=== PATIENT | male | born 1995 | race Caucasian/White ===

== ENCOUNTER 2019-10-25 11:25 | Emergency (ER) | payer SELFPAY ==
--- NOTE | 2019-10-25 13:08 | EDPHYS ---
Physician Documentation [facility] Name: Doug Bonilla II Age: 24 yrs Sex: Male : 1995 Arrival Date: 10/25/2019 Time: 11:28 Bed 23 Private MD: ED Physician Riley Looney HPI: 10/24 13:09 This 24 yrs old Male presents to ER via Ambulatory with complaints of Staple kb Removal. 13:09 The patient has ivanna on the scalp. Previous treatment: The patient was initially kb treated 5 day(s) ago, the care was rendered at another emergency department, [place]. Sutures/ivanna progress: The patient has no c/o's. The wound is well-healing with no redness, swelling, discharge, or dehiscence reported. The patient has not experienced similar symptoms in the past. The patient has been recently seen by a physician:. "I had a tree limb fall and hit me in the head. I had ivanna put in at an ER in [place] and they said to have them removed in 5-7 days. It's been 5 days and I want them out now." . Historical: - Allergies: 11:36 No Known Allergies; sv - PMHx: 11:36 Myocardial infarction; Brugada syndrome; sv - PSHx: 11:36 None; sv - Immunization history:: Adult Immunizations. - Social history:: Smoking status: . ROS: 13:09 Constitutional: Negative for fever, chills, and weight loss, Cardiovascular: Negative kb for chest pain, palpitations, and edema, Respiratory: Negative for shortness of breath, cough, wheezing, and pleuritic chest pain, Abdomen/GI: Negative for abdominal pain, nausea, vomiting, diarrhea, and constipation, Back: Negative for injury and pain, MS/Extremity: Negative for injury and deformity, Neuro: Negative for headache, weakness, numbness, tingling, and seizure. 13:09 Skin: Positive for laceration(s), of the scalp. Exam: 13:09 Constitutional: This is a well developed, well nourished patient who is awake, alert, kb and in no acute distress. Head/Face: Normocephalic, atraumatic. Neuro: Awake and alert, GCS 15, oriented to person, place, time, and situation. Cranial nerves II-XII grossly intact. Motor strength 5/5 in all extremities. Sensory grossly intact. Cerebellar exam normal. Normal gait. 13:09 Skin: Wound recheck: Staple laceration closure: the wound is healing well, the edges are well approximated, no evidence of dehiscence, no drainage, no erythema, no swelling. Vital Signs: 11:37 BP 150 / 90; Pulse 76; Resp 18; Pulse Ox 100% ; sv Procedures: 13:09 Suture/Staple removal: Removed 8 ivanna, from scalp, site appears well healed, Patient kb tolerated well. MDM: 12:53 Patient medically screened. kb 13:11 Data reviewed: vital signs, nurses notes. Data interpreted: Pulse oximetry: on room air kb is 100 %. Interpretation: normal. Counseling: I had a detailed discussion with the patient and/or guardian regarding: the historical points, exam findings, and any diagnostic results supporting the discharge/admit diagnosis, the need for outpatient follow up, a family practitioner, to return to the emergency department if symptoms worsen or persist or if there are any questions or concerns that arise at home. Administered Medications: No medications were administered Disposition: 10/25 11:09 Co-signature as Attending Physician, Riley Looney MD I agree with the assessment and [facility] plan of care. Disposition: 10/25/19 13:07 Discharged to Home. Impression: Encounter for removal of sutures - ivanna. - Condition is Stable. - Discharge Instructions: Suture Removal, Care After. - Medication Reconciliation Form, Thank You Letter, Antibiotic Education, Prescription Opioid Use form. - Follow up: Emergency Department; When: As needed; Reason: Worsening of condition. Follow up: Private Physician; When: 2 - 3 days; Reason: Recheck today's complaints, Continuance of care, Re-evaluation by your physician. Signatures: Shy Lao, LODGE OFFICER-C AILYN-Alejandrina Yoder RN RN sv Anderson, Corey, MD MD cha Smirch, Shelby, RN RN ss Corrections: (The following items were deleted from the chart) 10/24 13:14 13:07 10/25/2019 13:07 Discharged to Home. Impression: Encounter for removal of sutures ss - ivanna. Condition is Stable. Forms are Medication Reconciliation Form, Thank You Letter, Antibiotic Education, Prescription Opioid Use. Follow up: Emergency Department; When: As needed; Reason: Worsening of condition. Follow up: Private Physician; When: 2 - 3 days; Reason: Recheck today's complaints, Continuance of care, Re-evaluation by your physician. kb
--- NOTE | 2019-10-25 13:08 | ER ---
Nurse's Notes [facility] Name: Doug Bonilla II Age: 24 yrs Sex: Male : 1995 Arrival Date: 10/25/2019 Time: 11:28 Bed 23 Private MD: Diagnosis: Encounter for removal of sutures-ivanna Presentation: 10/24 11:34 Chief complaint: Patient states: ivanna placed in [place] on 10/20/19. Needs them sv removed. Coronavirus screen: Client denies travel out of the [place] in the last 14 days. At this time, the client does not indicate any symptoms associated with coronavirus-19. Ebola Screen: No symptoms or risks identified at this time. Risk Assessment: Do you want to hurt yourself or someone else? Patient reports no desire to harm self or others. Onset of symptoms was October 20, 2019. 11:34 Method Of Arrival: Ambulatory sv 11:34 Acuity: UMBERTO 4 sv 11:37 Initial Sepsis Screen: Does the patient meet any 2 criteria? No. Patient's initial sv sepsis screen is negative. Does the patient have a suspected source of infection? No. Patient's initial sepsis screen is negative. Triage Assessment: 11:34 General: Appears in no apparent distress. comfortable, obese, well developed, Behavior sv is cooperative, appropriate for age. Pain: Denies pain. Neuro: Level of Consciousness is awake, alert, obeys commands, Oriented to person, place, time, situation, Gait is steady. Respiratory: Airway is patent Respiratory effort is even, unlabored, Respiratory pattern is regular, symmetrical. Derm: Skin is pink, warm \T\ dry. ivanna noted to top of left side of head. Historical: - Allergies: 11:36 No Known Allergies; sv - PMHx: 11:36 Myocardial infarction; Brugada syndrome; sv - PSHx: 11:36 None; sv - Immunization history:: Adult Immunizations. - Social history:: Smoking status: . Screenin:55 Abuse screen: Denies threats or abuse. Denies injuries from another. Nutritional ss screening: No deficits noted. Tuberculosis screening: Never had TB. Fall Risk None identified. Assessment: 12:55 General: Appears in no apparent distress. comfortable, unkempt, Behavior is calm, ss cooperative. Pain: Denies pain. Neuro: Level of Consciousness is awake, alert, obeys commands, Oriented to person, place, time, situation. Cardiovascular: Capillary refill < 3 seconds is brisk in bilateral fingers. Respiratory: Airway is patent Respiratory effort is even, unlabored, Respiratory pattern is regular, symmetrical. GI: Patient currently denies diarrhea, nausea, vomiting. : No signs and/or symptoms were reported regarding the genitourinary system. Derm: Skin is intact, is healthy with good turgor, Skin is dry, Skin is pink, warm \T\ dry. normal. Musculoskeletal: Circulation, motion, and sensation intact. Range of motion: intact in all extremities, Swelling absent. 12:56 Reassessment: Pt states he is here to have ivanna (8) removed from scalp that were ss paced 5 days ago. Vital Signs: 11:37 BP 150 / 90; Pulse 76; Resp 18; Pulse Ox 100% ; sv ED Course: 11:28 Patient arrived in ED. ag5 11:34 Arm band placed on. sv 11:35 Triage completed. sv 12:22 Shy La[facility]C [facility] kb 12:23 Riley Looney MD is Attending Physician. kb 12:55 Isabel Campos, MANAV is Primary Nurse. ss 12:55 Patient has correct armband on for positive identification. Bed in low position. Call ss light in reach. 13:13 No provider procedures requiring assistance completed. Patient did not have IV access ss during this emergency room visit. Removal of Removed ivanna from scalp [place] site is well healed Patient tolerated well. Administered Medications: No medications were administered Outcome: 13:07 Discharge ordered by MD. kb 13:13 Discharged to home ambulatory. ss 13:13 Condition: good 13:13 Discharge instructions given to patient, Instructed on discharge instructions, follow up and referral plans. Demonstrated understanding of instructions, follow-up care. 13:14 Patient left the ED. ss Signatures: Shy Lao FNP-C FNP-Ckb Verde, Stephanie, RN RN Isabel Campos RN RN Alice Hudson ag5
[2019-10-26 19:25] VITALS: BP 150/90; O2SAT 100
== END 2019-10-25 13:14 | disposition home or self-care (01) ==
LOC: ER 11:25
DX: Z48.02 Encounter for removal of sutures (principal)
CPT/HCPCS: 99281

== ENCOUNTER 2021-07-05 09:40 | Inpatient (IN) | payer SELFPAY ==
--- OUTSIDE RECORDS SUMMARY | 2021-07-05 09:42 | XMS REPORT | Continuity of Care Document ---
:1995 Author Organization [facility] t Address [address] [place] [address] Care Team Providers Name Role Phone Bud LUCIA Attending Clinician Unavailable Problems Condition Condition Condition Status Onset Resolution Last Treating Co mments Source Name Details Category Date Date Treatment Clinician Date Problem Condition [facility] Allergies, Adverse Reactions, Alerts This patient has no known allergies or adverse reactions. Social History Social Habit Start Date Stop Date Quantity Comments Source Sex Assigned At [birth year] Male [facility] 00:00:00 00:00:00 Smoking Status Start Date Stop Date Source Smokes tobacco daily (finding) 2019-10-20 11:37:00 [employer] Medications This patient has no known medications. Immunizations Ordered Immunization Filled Immunization Date Status Commen ts Source Name Name Tetanus/Diphtheria 2019-10-20 Completed [facility] (Adult)/PF 00:00:00 Vital Signs Vital Name Observation Time Observation Value Comments Source Body Temperature 2019-10-20 12:29:00 98.6 [degF] [employer] Heart Rate 2019-10-20 12:29:00 74 /min [employer] Respiratory rate 2019-10-20 12:29:00 18 /min [employer] BP Systolic 2019-10-20 12:29:00 132 mm[Hg] [employer] BP Diastolic 2019-10-20 12:29:00 77 mm[Hg] [employer] Heart Rate 2019-10-20 11:05:00 79 /min [employer] Respiratory rate 2019-10-20 11:05:00 16 /min [employer] BP Systolic 2019-10-20 11:05:00 145 mm[Hg] [employer] BP Diastolic 2019-10-20 11:05:00 84 mm[Hg] [employer] Weight 2019-10-20 11:05:00 314 [lb_av] [facility] BMI (Body Mass Index) 2019-10-20 11:05:00 40.3 kg/m2 [facility] Procedures Procedure Date / Time Performed Performing Clinician Sour e Computed tomography of 2019-10-20 00:00:00 [facility] head or brain without contrast Encounters Start End Encounter Admission Attending Care Care Encounter Source Date/Time Date/Time Type Type Clinicians Facility Department ID 2019-10-20 Inpatient DERIAN LUCIA [id number] [facility] 11:00:00 LOUIE [id number] [facility] 2019-10-20 2019-10-20 Departed NATALIE MENARD [id number] [facility] 11:00:00 12:30:00 Emergency [facility] [address] Results This patient has no known results.
[2021-07-05 11:41] LABS: Absolute Lymphocytes (CBC) 1.9 K/uL (0.7-4.9); Hematocrit 40.1 % (39.6-49.0); MPV 7.3 fL (7.6-11.3); RBC Red Blood Cell Count 5.07 M/uL (4.33-5.43)
[2021-07-05 11:48] LABS: Protime INR 1.39
--- NOTE | 2021-07-05 11:53 | RAD REPORT ---
EXAM DESCRIPTION: [place] Single View07/05/2021 11:43 am CLINICAL HISTORY: Shortness of breath COMPARISON: none FINDINGS: Lungs are mildly hazy. The heart is moderately enlarged IMPRESSION: These findings probably indicate mild CHF
[2021-07-05 12:00] LABS: Albumin 3.1 g/dL (3.4-5.0); Bilirubin Direct 0.4 mg/dL (0-0.2); Bilirubin Total 1.1 mg/dL (0.2-1.0); Magnesium 2.2 mg/dL (1.8-2.4); Protein, Total 6.9 g/dL (6.4-8.2)
[2021-07-05 12:04] LABS: Troponin High Sensitivity 150.4 pg/mL (<58.9)
--- NOTE | 2021-07-05 13:24 | RAD REPORT ---
EXAM DESCRIPTION: CT - Chest For Pe Angio - 07/05/2021 1:13 pm CLINICAL HISTORY: Chest pain. Pulmonary embolism (PE) suspected, positive D-dimer COMPARISON: No comparisons TECHNIQUE: CT angiogram of the pulmonary arteries was performed with MIP. All CT scans are performed using dose optimization technique as appropriate and may include automated exposure control or mA/KV adjustment according to patient size. FINDINGS: No evidence of pulmonary thromboembolism. No acute aortic finding demonstrated. Interstitial prominence is seen bilaterally suggesting a mild viral infection or asthma. Trace right pleural effusion. No concerning bony finding. IMPRESSION: No evidence of pulmonary thromboembolism.
--- NOTE | 2021-07-05 14:35 | EDPHYS ---
Physician Documentation [facility] Name: Doug Bonilla II Age: 26 yrs Sex: Male : 1995 Arrival Date: 07/05/2021 Time: 09:42 Bed 19 Private MD: TARA Physician Riley Looney HPI: 07/05 10:34 This 26 yrs old Male presents to ER via Ambulatory with complaints of Shortness Of jmm Breath. 10:34 The patient has shortness of breath at rest. Onset: The symptoms/episode began/occurred jmm gradually, 1 month(s) ago. Duration: The symptoms are continuous. The patient's shortness of breath is aggravated by nothing, is alleviated by nothing. Associated signs and symptoms: Pertinent negatives: non-productive cough. This is a 26-year-old male with history of Brugada, coronary artery disease the presents emerged part with complaints of progressively worsening shortness of breath over the past month. Patient denies chest pain. Denies fever. Denies cough.. Historical: - Allergies: 09:49 No Known Allergies; ll1 - PMHx: 09:49 Brugada syndrome; Myocardial infarction; ll1 - PSHx: 09:49 None; ll1 - Immunization history:: Client reports receiving the 2nd dose of the Covid vaccine. - Social history:: Smoking status: Patient reports the use of cigarette tobacco products, smokes one pack cigarettes per day. ROS: 10:34 Constitutional: Negative for fever, chills, and weight loss, Cardiovascular: Negative jmm for chest pain, palpitations, and edema. 10:34 Respiratory: Positive for shortness of breath. 10:34 All other systems are negative. Exam: 10:34 Constitutional: This is a well developed, well nourished patient who is awake, alert, jmm and in no acute distress. Head/Face: atraumatic. Eyes: EOMI, no conjunctival erythema appreciated ENT: Moist Mucus Membranes Neck: Trachea midline, Supple Chest/axilla: Normal chest wall appearance and motion. Cardiovascular: Regular rate and rhythm. No edema appreciated Respiratory: Normal respirations, no respiratory distress appreciated Abdomen/GI: Non distended, soft Back: Normal ROM Skin: General appearance color normal MS/ Extremity: Moves all extremities, no obvious deformities appreciated, no edema noted to the lower extremities Neuro: Awake and alert Psych: Behavior is normal, Mood is normal, Patient is cooperative and pleasant Vital Signs: 09:51 BP 176 / 126; Pulse 102; Resp 18; Temp 98.2; Pulse Ox 99% ; Weight 145.15 kg; Height 6 ll1 ft. 2 in. (187.96 cm); Pain 3/10; 10:46 BP 170 / 115; Pulse 92; Resp 19; Pulse Ox 100% on R/A; vg1 14:00 BP 144 / 85; Pulse 95; Resp 18; Pulse Ox 99% on R/A; vg1 09:51 Body Mass Index 41.09 (145.15 kg, 187.96 cm) ll1 MDM: 10:34 Patient medically screened. [facility] 14:32 Data reviewed: vital signs, nurses notes. Counseling: I had a detailed discussion with eugene the patient and/or guardian regarding: the historical points, exam findings, and any diagnostic results supporting the discharge/admit diagnosis, lab results, radiology results, the need for further work-up and treatment in the hospital. ED course: I discussed the patient with Emory Xiao whom accepted the patient to his service. . 07/05 11:10 Order name: Basic Metabolic Panel; Complete Time: 12:07 [facility] 07/05 11:10 Order name: CBC with Diff; Complete Time: 11:46 [facility] 07/05 11:10 Order name: D-Dimer; Complete Time: 11:58 [facility] 07/05 11:10 Order name: LFT's; Complete Time: 12:07 [facility] 07/05 11:10 Order name: Magnesium; Complete Time: 12:07 [facility] 07/05 11:10 Order name: NT PRO-BNP; Complete Time: 12:07 [facility] 07/05 11:10 Order name: PT-INR; Complete Time: 11:58 [facility] 07/05 11:10 Order name: Troponin HS; Complete Time: 12:07 [facility] 07/05 14:32 Order name: SARS-COV-2 RT PCR (Document "Date of Onset" if Symptomatic); Complete Time: [facility] 18:20 07/05 15:07 Order name: Influenza Screen (a \\T\\ B) [facility] 07/05 15:42 Order name: Urinalysis [facility] 07/05 15:42 Order name: CBC with Automated Diff [facility] 07/05 15:42 Order name: CBC with Automated Diff [facility] 07/05 15:42 Order name: Comprehensive Metabolic Panel [facility] 07/05 11:10 Order name: XRAY Chest (1 view); Complete Time: 11:58 [facility] 07/05 11:10 Order name: EKG; Complete Time: 11:10 [facility] 07/05 11:10 Order name: Cardiac monitoring; Complete Time: 11:36 [facility] 07/05 11:10 Order name: EKG - Nurse/Tech; Complete Time: 11:36 [facility] 07/05 11:58 Order name: CT Chest For PE Angio; Complete Time: 13:38 [facility] 07/05 15:41 Order name: CONS Physician Consult [facility] 07/05 15:42 Order name: Heart Healthy [facility] 07/05 15:42 Order name: Comprehensive Metabolic Panel [facility] 07/05 15:42 Order name: Magnesium [facility] 07/05 15:42 Order name: Magnesium [facility] 07/05 15:42 Order name: Troponin High Sensitivity [facility] 07/05 15:42 Order name: Troponin High Sensitivity [facility] 07/05 15:42 Order name: Troponin High Sensitivity [facility] 07/05 15:43 Order name: Echo with Doppler [facility] 07/05 15:43 Order name: Extrem Venous W Compress Cas; Complete Time: 18:31 [facility] 07/05 15:45 Order name: Abdomen ; Complete Time: 17:22 [facility] 07/05 11:10 Order name: IV Saline Lock; Complete Time: 11:36 [facility] 07/05 11:10 Order name: Labs collected and sent; Complete Time: 11:36 [facility] 07/05 11:10 Order name: O2 Per Protocol; Complete Time: 11:36 [facility] 07/05 11:10 Order name: O2 Sat Monitoring; Complete Time: 11:35 [facility] Administered Medications: No medications were administered Disposition Summary: 07/05/21 14:34 Hospitalization Ordered Hospitalization Status: Observation jm Provider: Jason Cat Condition: Stable jmm Problem: new jmm Symptoms: are unchanged jmm Bed/Room Type: Standard m Location: Telemetry/MedSurg (observation)(07/06/21 10:24) bd Room Assignment: 207(07/06/21 10:24) bd Diagnosis - Shortness of breath jmm - Unspecified combined systolic (congestive) and diastolic (congestive) heart failure [facility] Forms: - Medication Reconciliation Form [facility] - SBAR form [facility] Signatures: Dispatcher [employer] EDShauna Cook Joel, PA PA jmm Garcia, Cindy, RN RN cg Ronda Atkins RN RN ll1 Corrections: (The following items were deleted from the chart) 19:52 14:34 Telemetry/MedSurg (observation) [facility] 19:52 14:34 [facility] 07/06 10:24 07/05 19:52 [facility] ER HOLD [facility] 07/06 10:24 07/05 19:52 ERHOLD- bd
--- NOTE | 2021-07-05 14:35 | ER ---
Nurse's Notes [facility] Name: Doug Bonilla II Age: 26 yrs Sex: Male : 1995 Arrival Date: 07/05/2021 Time: 09:42 Bed 19 Private MD: Diagnosis: Shortness of breath;Unspecified combined systolic (congestive) and diastolic (congestive) heart failure Presentation: 07/05 09:51 Chief complaint: Patient states: SOB worse at night for 1 month. Has had CHF since ll1 May last year. No fever. Coronavirus screen: Vaccine status: Patient reports receiving the 2nd dose of the covid vaccine. Client denies travel out of the [place] in the last 14 days. At this time, the client does not indicate any symptoms associated with coronavirus-19. Ebola Screen: Patient denies travel to an Ebola-affected area in the 21 days before illness onset. Initial Sepsis Screen: Does the patient meet any 2 criteria? HR > 90 bpm. No. Patient's initial sepsis screen is negative. Does the patient have a suspected source of infection? No. Patient's initial sepsis screen is negative. Risk Assessment: Do you want to hurt yourself or someone else? Patient reports no desire to harm self or others. Onset of symptoms was June 05, 2021. 09:51 Method Of Arrival: Ambulatory ll1 09:51 Acuity: UMBERTO 3 ll1 Triage Assessment: 09:52 General: Appears in no apparent distress. Behavior is calm, cooperative, appropriate ll1 for age. Pain: Denies pain. Respiratory: Reports shortness of breath on exertion Onset: The symptoms/episode began/occurred about 1 month, the patient has moderate shortness of breath. Historical: - Allergies: 09:49 No Known Allergies; ll1 - PMHx: 09:49 Brugada syndrome; Myocardial infarction; ll1 - PSHx: 09:49 None; ll1 - Immunization history:: Client reports receiving the 2nd dose of the Covid vaccine. - Social history:: Smoking status: Patient reports the use of cigarette tobacco products, smokes one pack cigarettes per day. Screenin:13 Abuse screen: Denies threats or abuse. Nutritional screening: No deficits noted. vg1 Tuberculosis screening: No symptoms or risk factors identified. Fall Risk No fall in past 12 months (0 pts). No secondary diagnosis (0 pts). IV access (20 points). Ambulatory Aid- None/Bed Rest/Nurse Assist (0 pts). Gait- Normal/Bed Rest/Wheelchair (0 pts) Mental Status- Oriented to own ability (0 pts). Total Ennis Fall Scale indicates No Risk (0-24 pts). Assessment: 10:45 General: Appears in no apparent distress. comfortable, Behavior is calm, cooperative. vg1 Pain: Complains of pain in chest Pain currently is 3 out of 10 on a pain scale. Pain began x 1 month Is intermittent. Neuro: Lozano Agitation-Sedation Scale (RASS): 0 - Alert and Calm Level of Consciousness is awake, alert, obeys commands, Oriented to person, place, time, situation. Cardiovascular: Patient's skin is warm and dry. Respiratory: Reports shortness of breath x 1 month "at night, and when Im laying down" Airway is patent Respiratory effort is even, unlabored, Breath sounds are clear bilaterally. GI: Abdomen is round non-distended, obese, Reports nausea. : No signs and/or symptoms were reported regarding the genitourinary system. EENT: No signs and/or symptoms were reported regarding the EENT system. Derm: Skin is intact, is healthy with good turgor. Musculoskeletal: Circulation, motion, and sensation intact. 11:45 Reassessment: Patient appears in no apparent distress at this time. No changes from vg1 previously documented assessment. Patient and/or family updated on plan of care and expected duration. Pain level reassessed. Patient is alert, oriented x 3, equal unlabored respirations, skin warm/dry/pink. 12:45 Reassessment: Patient appears in no apparent distress at this time. No changes from vg1 previously documented assessment. Patient and/or family updated on plan of care and expected duration. Pain level reassessed. Patient is alert, oriented x 3, equal unlabored respirations, skin warm/dry/pink. 13:45 Reassessment: Patient appears in no apparent distress at this time. No changes from vg1 previously documented assessment. Patient is alert, oriented x 3, equal unlabored respirations, skin warm/dry/pink. Vital Signs: 09:51 BP 176 / 126; Pulse 102; Resp 18; Temp 98.2; Pulse Ox 99% ; Weight 145.15 kg; Height 6 ll1 ft. 2 in. (187.96 cm); Pain 3/10; 10:46 BP 170 / 115; Pulse 92; Resp 19; Pulse Ox 100% on R/A; vg1 14:00 BP 144 / 85; Pulse 95; Resp 18; Pulse Ox 99% on R/A; vg1 09:51 Body Mass Index 41.09 (145.15 kg, 187.96 cm) 1 ED Course: 09:42 Patient arrived in ED. mr 09:44 Sam George PA is PHCP. jmm 09:44 Riley Looney MD is Attending Physician. jmm 09:49 Arm band placed on. ll1 09:53 Triage completed. ll1 10:28 Patient placed in an exam room, on a stretcher. 1 10:44 Tamika Cohen, MANAV is Primary Nurse. vg1 11:00 Missed attempt(s): 20 gauge in right antecubital area. vg1 11:10 Initial lab(s) drawn, by me. Missed attempt(s): 20 gauge in left antecubital area. vg1 11:13 Patient has correct armband on for positive identification. Bed in low position. Call vg1 light in reach. Side rails up X 1. 11:45 XRAY Chest (1 view) In Process Unspecified. EDMS 12:24 Inserted saline lock: 22 gauge in right antecubital area, using aseptic technique. vg1 ,using aseptic technique. completed by John centrifuge separator tender. 12:35 IV discontinued, intact, bleeding controlled, No redness/swelling at site. Pressure vg1 dressing applied, infiltrated. 12:40 Inserted saline lock: 24 gauge in left forearm, using aseptic technique. ,using aseptic vg1 technique. completed by John vascular technologist. 13:14 CT Chest For PE Angio In Process Unspecified. EDMS 14:33 Lul Cat MD is Hospitalizing Provider. jmm 14:33 Jason Cat MD is Hospitalizing Provider. [facility] 20:35 Notified Nurse Practitioner and/or Physician Custom Bookbinder of a critical lab result(s), bb troponin of 102.8 Alla LEWIS notified. 07/06 11:10 No provider procedures requiring assistance completed. Patient admitted, IV remains in vg1 place. Administered Medications: No medications were administered Medication: 07/05 11:13 VIS not applicable for this client. vg1 Outcome: 14:34 Decision to Hospitalize by Provider. eugene 07/06 11:09 Admitted to Tele accompanied by tech, via wheelchair, room 207, with chart, Report vg1 called to Dagmar EM Condition: good Instructed on the need for admit. 11:19 Patient left the ED. vg1 Signatures: Dispatcher [employer] EDMS Sam George PA PA [facility] Magaly Cruz mr Saima Simpson, RN RN bb Tamika Cohen RN RN vg1 Ronda Atkins RN RN ll1 Corrections: (The following items were deleted from the chart) 07/05 10:28 09:49 Arm band placed on Patient placed in an exam room, on a stretcher, ll1 ll1
[2021-07-05] MEDS ORDERED: ONDANSETRON 4 MG/2 ML VIAL IV PRN (15:39)
--- NOTE | 2021-07-05 15:44 | P.HP ---
Certification for Inpatient Patient admitted to: Inpatient With expected LOS: >2 Midnights Practitioner: I am a practitioner with admitting privileges, knowledge of patient current condition, hospital course, and medical plan of care. Services: Services provided to patient in accordance with Admission requirements found in Title 42 Section 412.3 of the Code of Federal Regulations Patient History Date of Service: 07/05/21 Reason for admission: CHF exacerbation, NSTEMI History of Present Illness: 26yo M, PMH: UT (no stent/bypass), Brugada syndrome - per patient Presented to ED due to ~3 weeks of shortness of breath, orthopnea, and generalized fatigue. Reports 1 episode of severe chest pain ~3 weeks ago that resolved. Reports he had an UT in 2019, not clear on details, but states he remembers terms " widowmaker, critical occlusion" and was told only medical management due to inability / high risk of stent placement. He took medication for 3 months, then stopped since he was feeling better. He smokes 1ppd, and smokes synthetic marijuana. Denies fever, no nausea/vomiting, no weight loss, no urinary symptoms, no rash. In the ED, he was noted to be tachycardic, elevated troponin, MARVIN, and suspected to be volume overloaded. Allergies No Known Allergies Allergy (Unverified 07/05/21 16:26) Home Medications: NK [No Home Meds] 07/05/21 - Past Medical/Surgical History Past Surgical History: Patient denies surgical history - Family History Mother -: Heart disease - Social History Smoking Status: Current every day smoker Alcohol use: No Place of Residence: Home Review of Systems 10-point ROS is otherwise unremarkable Physical Examination - Physical Exam General: Alert, In no apparent distress, Oriented x3 HEENT: Sclerae nonicteric Neck: Supple, No LAD Respiratory: Diminished, Crackles/rales Cardiovascular: Other (sinus tachycardia), Edema Gastrointestinal: Soft and benign, Non-distended, No tenderness Musculoskeletal: No contractures Integumentary: No significant lesion Neurological: Normal speech, Normal strength at 5/5 x4 extr, Normal affect - Studies Laboratory Data (last 24 hrs) 07/05/21 11:05: PT 15.4 H, INR 1.39 07/05/21 11:05: WBC 10.1, Hgb 13.1 L, Hct 40.1, Plt Count 340 07/05/21 11:05: Sodium 138, Potassium 4.0, BUN 13, Creatinine 1.37 H, Glucose 95, Magnesium 2.2, Total Bilirubin 1.1 H, AST 116 H, ALT 126 H, Alkaline Phosphatase 59 Assessment and Plan - Advance Directives Does patient have a Living Will: No Does patient have a Durable POA for Healthcare: No Physician Review Additional Text: Problem List Dyspnea presumed CHF exacerbation, unknown type NSTEMI h/o UT h/o brugada syndrome elevated LFTs admit to telemetry lasix, aspirin, statin, beta leslie, lovenox trend troponin, possibly demand ischemia in CHF CT with insterstitial findings, possible viral component, afebrile echo ordered h/o UT in 2019, ?[facility]; will need to confirm where and what logistic manager to try and get med records elevated LFTs - denies liver history, check CT, may need U/S; possibly from CHF cardiology consulted, need more information / results, potential cath later in week VTE: lovenox Code: full Dispo: home ~2-3 days Time Spent Managing Pts Care (In Minutes): 75
--- NOTE | 2021-07-05 17:09 | RAD REPORT ---
EXAM DESCRIPTION: CT - Abdomen Pelvis Wo Contrast - 07/05/2021 4:58 pm CLINICAL HISTORY: Abdominal pain. abd fullness, elevated LFTs COMPARISON: No comparisons TECHNIQUE: CT imaging of the abdomen and pelvis was performed without contrast. Solid organ, bowel a nd vascular assessment is limited due to lack of IV and oral contrast. All CT scans are performed using dose optimization technique as appropriate and may include automated exposure control or mA/KV adjustment according to patient size. FINDINGS: Trace right pleural fluid is present.Possible cholelithiasis. The liver, spleen, pancreas, adrenal glands and kidneys are within normal limits for a limited non-co ntrast examination. No bowel obstruction, free air, or abscess. Small volume of free fluid in the pelvis. The appendix is normal. The osseous structures are within normal limits. IMPRESSION: No acute intra-abdominal or pelvic findings. Questionable cholelithiasis. A limited non-contrast examination was performed as detailed.
[2021-07-05] MEDS: METOPROLOL TAR 25 MG TAB PO SCH (17:17)
[2021-07-05] MEDS: FUROSEMIDE 40 MG/4 ML VIAL IV SCH (17:17)
[2021-07-05] MEDS ORDERED: METOPROLOL TAR 25 MG TAB ONE (17:21)
[2021-07-05] MEDS ORDERED: FUROSEMIDE 40 MG/4 ML VIAL ONE (17:21)
[2021-07-05 17:29] VITALS: BMI 41.1
--- NOTE | 2021-07-05 18:31 | RAD REPORT ---
EXAM DESCRIPTION: US - Extrem Venous W Compress Cas - 07/05/2021 5:54 pm CLINICAL HISTORY: R leg stiff, r/o DVT Bilateral leg edema and swelling. COMPARISON: <Comparisons> TECHNIQUE: Real-time sonographic interrogation of the left and right lower extremity deep venous sys tems was performed. FINDINGS: Normal compressibility, flow augmentation, phasic flow and spontaneous flow is identified in both the left and right lower extremity deep venous systems. IMPRESSION: No sonographic evidence of left or right lower extremity deep venous thrombosis.
[2021-07-05] MEDS ORDERED: ATORVASTATIN 20 MG TAB ONE (20:02)
[2021-07-05] MEDS: ATORVASTATIN 40 MG TAB PO SCH (20:56)
[2021-07-06] MEDS ORDERED: HYDRALAZINE HCL 20 MG/ML VIAL ONE (01:34)
[2021-07-06] MEDS: HYDRALAZINE HCL 20 MG/ML VIAL IV PRN ×2 (01:40→12:17)
[2021-07-06 03:49] LABS: Absolute Lymphocytes (CBC) 2.7 K/uL (0.7-4.9); Hematocrit 38.3 % (39.6-49.0); Lymphocytes % 24.9 % (15.3-44.8)
[2021-07-06 04:21] LABS: Bilirubin Total 0.8 mg/dL (0.2-1.0); Magnesium 2.4 mg/dL (1.8-2.4); Potassium 3.8 mmol/L (3.5-5.1); Protein, Total 6.5 g/dL (6.4-8.2)
[2021-07-06] MEDS ORDERED: cloNIDine HCL 0.1 MG TAB PO ONE (05:30)
[2021-07-06] MEDS: METOPROLOL TAR 25 MG TAB PO SCH ×2 (05:47→17:25)
[2021-07-06] MEDS ORDERED: METOPROLOL TAR 25 MG TAB ONE (05:48)
[2021-07-06] MEDS ORDERED: cloNIDine HCL 0.1 MG TAB ONE (05:48)
[2021-07-06] MEDS ORDERED: POTASSIUM 25 MEQ EFFERV TAB PO ONE (06:30)
[2021-07-06] MEDS ORDERED: POTASSIUM 25 MEQ EFFERV TAB ONE (06:49)
[2021-07-06] MEDS ORDERED: ASPIRIN EC 81 MG TAB PO ONE (08:09)
[2021-07-06] MEDS ORDERED: FUROSEMIDE 40 MG/4 ML VIAL ONE (08:09)
[2021-07-06] MEDS: ASPIRIN EC 81 MG TAB PO SCH (09:00)
[2021-07-06] MEDS: FUROSEMIDE 40 MG/4 ML VIAL IV SCH ×2 (09:00→16:38)
--- NOTE | 2021-07-06 09:36 | EKG ---
Test Date: 2021-07-05 Test Time: 11:26:01 Bindery Machine Feeder Offbearer: KV MEASUREMENT RESULTS: Intervals: Rate: 92 FL: 192 QRSD: 164 QT: 446 QTc: 551 [place]: P: 31 FL: 192 QRS: 127 T: 40 INTERPRETIVE STATEMENTS: Normal sinus rhythm Possible Left atrial enlargement Right bundle branch block Inferior infarct, age undetermined Anterolateral infarct, age undetermined Abnormal ECG No previous ECG available for comparison Electronically Signed On 07-06-21 09:32:37 CDT by Lenny Vieira
--- NOTE | 2021-07-06 13:07 | P.PN ---
Subjective Date of Service: 07/06/21 Chief Complaint: CHF exacerbation, NSTEMI Patient denies any chest pain at the moment. Troponin elevated but trended down. Physical Examination - Vital Signs Temperature: 96.7 F Blood Pressure: 165/107 Pulse: 90 Respirations: 18 Pulse Ox (%): 97 - Physical Exam General: Alert, In no apparent distress, Oriented x3, Obese HEENT: Mucous membr. moist/pink Neck: Supple, JVD not distended Respiratory: Clear to auscultation bilaterally, Normal air movement Cardiovascular: No edema, Regular rate/rhythm, Normal S1 S2 Gastrointestinal: Soft and benign, Non-distended Musculoskeletal: No swelling, No tenderness Integumentary: No rashes, No erythema, No cyanosis Neurological: Normal strength at 5/5 x4 extr, Cranial nerves 3-12 intact Assessment And Plan - Current Problems (Diagnosis) (1) Chest pain Current Visit: Yes Status: Acute (2) Elevated troponin Current Visit: Yes Status: Acute (3) Morbid obesity Current Visit: Yes Status: Acute (4) Malignant hypertension Current Visit: Yes Status: Acute - Plan Diagnosis Dyspnea presumed CHF exacerbation, unknown type NSTEMI h/o CA h/o brugada syndrome elevated LFTs Plan: Continue lasix for possible CHF. Continue aspirin, statin, beta leslie, lovenox Patient seen by cardiology. Awaiting Dr. Vieira's input Echocardiogram is pending. elevated LFTs possibly secondary to CHF/right heart failure. Retrieve medical records to confirm Brugada syndrome. Labetalol as needed for BP spikes. Titrate metoprolol.
[2021-07-06] MEDS: ACETAMINOPHEN 500 MG TAB PO PRN (17:36)
[2021-07-06] MEDS ORDERED: ACETAMINOPHEN 500 MG TAB ONE (17:40)
[2021-07-06] MEDS: ATORVASTATIN 40 MG TAB PO SCH (20:38)
--- NOTE | 2021-07-06 22:21 | CON ---
Date of Consultation: 07/06/2021 Admitted on 07/05/[address] Cat's service. Reason For Consultation: Congestive heart failure. History Of Present Illness: Mr. Bonilla is 26-year-old white male with a rather unfortunate past me dical history. Supposedly, he has had a coronary artery disease. He had an MN in 2018. He was told to have congestive heart failure as well as what we call Brugada syndrome. I have absolutely no rec ord of any of the lung history. In September 2017, he had a catheterization. He was told he was too di fficult to do intervention on. This was done at [place], [place] at [facility]. Records are pending. Right now, he is improved, on diuresis. His troponin was elevated. Li jacquie function enzymes were elevated, but have improved. His D-dimer was 2833. CTA angiogram showed m ild bilateral pneumonia, but no pulmonary embolus. CTA of the abdomen was negative. Venous Doppler was negative. Chest x-ray shows CHF. Past Medical History: As stated above. Allergies: NONE. Review of Systems: Negative. Social History: Negative. Family History: Negative. Medications: Presently include Lipitor, Lovenox, Lasix, metoprolol, hydralazine, and clonidine. He was not taking any medications at home. Physical Examination: Vital Signs: His weight was 320 pounds. Blood pressure is 176/97, sinus rhythm. General: He was in no acute distress. HEENT: Negative. Neck: Supple. Chest: Reveals some rales at both bases. Cardiac: Revealed a regular rhythm and rate. No murmurs, gallops, or rubs. Abdomen: Benign. Extremities: Revealed no clubbing, cyanosis. He had 1+ edema. Diagnostic Data: As stated earlier. Also, including a creatinine of 1.47. Impression And Plan: 1.Acute on chronic congestive heart failure, probably systolic. Echocardiogram is pending. 2.Presumed history of coronary artery disease, status post myocardial infarction with difficult madelaine aline. No intervention was done in 2018. Medical records from [facility] are pend ing from 2018. We will have to obtain that before I will do another catheterization on him. 3.Brugada syndrome. Again, records are available. 4.Renal insufficiency. 5.Elevated troponin, LFTs, and D-dimer secondary to congestive heart failure. 6.Hypertension that is poorly controlled. I agree with Lipitor, Lovenox, Lasix, metoprolol, hydralazine, and clonidine. We will see what the e chocardiogram shows. We will see what the medical record shows before performing any catheterization on him. ANJUM/NAHED Voice ID: [id number] Report ID: [id number]
[2021-07-07] MEDS: HYDRALAZINE HCL 20 MG/ML VIAL IV PRN ×2 (01:50→09:12)
[2021-07-07] MEDS: METOPROLOL TAR 25 MG TAB PO SCH ×2 (05:34→17:06)
[2021-07-07 06:16] LABS: Potassium 3.6 mmol/L (3.5-5.1)
--- NOTE | 2021-07-07 07:45 | ECHO ---
HEIGHT: 6 ft 2 in WEIGHT: 320 lb 0.015 oz DATE OF STUDY: 07/06/[address]: Jason Cat MD 2-DIMENSIONAL: YES M.MODE: YES DOPPLER: YES COLOR FLOW: YES TDS: YES PORTABLE: YES DEFINITY: BUBBLE STUDY: DIAGNOSIS: CONGESTIVE HEART FAILURE CARDIAC HISTORY: CATHERIZATION: YES SURGERY: NO PROSTHETIC VALVE: NO PACEMAKER: NO MEASUREMENTS (cm) DIASTOLIC (NORMALS) SYSTOLIC (NORMALS) IVSd 1.3 (0.6-1.2) LA Diam 5.2 (1.9-4.0) LVEF 34% LVIDd 5.9 (3.5-5.7) LVIDs 4.9 (2.0-3.5) %FS 17% LVPWd 1.5 (0.6-1.2) Ao Diam 3.5 (2.0-3.7) 2 DIMENSIONAL ASSESSMENT: RIGHT ATRIUM: NORMAL LEFT ATRIUM: DILATED RIGHT VENTRICLE: NORMAL LEFT VENTRICLE: LEFT VENTRICULAR HYPERTROPHY TRICUSPID VALVE: NORMAL MITRAL VALVE: NORMAL PULMONIC VALVE: NORMAL AORTIC VALVE: NORMAL PERICARDIAL EFFUSION: NONE AORTIC ROOT: NORMAL LEFT VENTRICULAR WALL MOTION: SEVERE GLOBAL HYPOKINESIS. DOPPLER/COLOR FLOW: MILD MITRAL REGURGITATION, TRICUSPID REGURGITATION. COMMENTS: SEVERE GLOBAL HYPOKINESIS. EJECTION FRACTION 34%. MILD MITRAL REGURGITATION, TRICUSPID REGURGITATION. TECHNOLOGIST: EDITH MCCALLUM
[2021-07-07] MEDS ORDERED: POTASSIUM CL SA 10 MEQ TAB PO ONE (09:00)
[2021-07-07 09:08] LABS: Urine Appearance Clear (Clear); Urine Bilirubin Negative (Negative); Urine Blood Negative (Negative); Urine Color Yellow (Yellow); Urine Glucose Negative (Negative); Urine Protein 1+ (Negative); Urine Specific Gravity 1.015 (1.005-1.030); Urine Urobilinogen >=8.0 mg/dL (0.2-1.0)
[2021-07-07 09:09] LABS: Urine Microscopic Reflex ORDER UMIC
[2021-07-07] MEDS: ASPIRIN EC 81 MG TAB PO SCH (09:11)
[2021-07-07] MEDS: FUROSEMIDE 40 MG/4 ML VIAL IV SCH ×2 (09:12→16:10)
[2021-07-07 09:16] LABS: Urine Bacteria NONE SEEN /HPF (NONE SEEN); Urine RBC <5 /HPF (NONE SEEN)
--- NOTE | 2021-07-07 17:50 | P.PN ---
Subjective Date of Service: 07/07/21 Chief Complaint: CHF exacerbation, NSTEMI Patient has no new complaint. He denies any chest pain or shortness of breath. Physical Examination - Vital Signs Temperature: 97.0 F Blood Pressure: 165/109 Pulse: 89 Respirations: 20 Pulse Ox (%): 99 - Physical Exam General: Alert, In no apparent distress HEENT: Mucous membr. moist/pink Neck: JVD not distended Respiratory: Clear to auscultation bilaterally, Normal air movement Cardiovascular: No edema, Regular rate/rhythm, Normal S1 S2 Gastrointestinal: Normal bowel sounds, Soft and benign, Non-distended, No tenderness Musculoskeletal: No swelling, No tenderness Integumentary: No rashes, No cyanosis Neurological: Normal strength at 5/5 x4 extr Assessment And Plan - Current Problems (Diagnosis) (1) Chest pain Current Visit: Yes Status: Acute (2) Elevated troponin Current Visit: Yes Status: Acute (3) Morbid obesity Current Visit: Yes Status: Acute (4) Malignant hypertension Current Visit: Yes Status: Acute - Plan Diagnosis Dyspnea presumed CHF exacerbation, unknown type NSTEMI h/o MD h/o brugada syndrome elevated LFTs Plan: Echocardiogram demonstrating EF of 34% and severe global hypokinesia Continue lasix. Continue aspirin, statin, beta leslie, lovenox Patient seen by cardiology-Dr. Vieira. Awaiting medical records from [place] to confirm Brugada syndrome. Further management will based on his previous medical records per Dr. Vieira. Elevated LFTs possibly secondary to CHF/right heart failure. Labetalol as needed for BP spikes. Add amlodipine for blood pressure control. Continue metoprolol.
[2021-07-07] MEDS: AMLODIPINE 10 MG TAB PO SCH (18:23)
[2021-07-07] MEDS: ATORVASTATIN 40 MG TAB PO SCH (21:02)
[2021-07-08] MEDS: METOPROLOL TAR 25 MG TAB PO SCH (05:33)
[2021-07-08 06:12] LABS: Absolute Lymphocytes (CBC) 2.4 K/uL (0.7-4.9); Hematocrit 43.3 % (39.6-49.0); Lymphocytes % 23.2 % (15.3-44.8); MPV 6.9 fL (7.6-11.3); RBC Red Blood Cell Count 5.44 M/uL (4.33-5.43)
[2021-07-08 06:36] LABS: Potassium 3.7 mmol/L (3.5-5.1)
[2021-07-08] MEDS: AMLODIPINE 10 MG TAB PO SCH (07:59)
[2021-07-08] MEDS: ASPIRIN EC 81 MG TAB PO SCH (08:00)
[2021-07-08 08:01] VITALS: BP 166/109
[2021-07-08] MEDS: FUROSEMIDE 40 MG/4 ML VIAL IV SCH (08:01)
[2021-07-08] MEDS ORDERED: POTASSIUM CL SA 10 MEQ TAB PO ONE (09:00)
[2021-07-08 09:11] VITALS: TEMP 98
[2021-07-08] MEDS: ACETAMINOPHEN 500 MG TAB PO PRN (09:52)
--- NOTE | 2021-07-08 09:52 | P.DS ---
Admission Date: 07/05/21 Discharge Date: 07/08/21 Disposition: ROUTINE DISCHARGE Discharge Condition: FAIR Reason for Admission: CHF exacerbation, NSTEMI - Problems (1) Chest pain Status: Acute (2) Elevated troponin Status: Acute (3) Morbid obesity Status: Acute (4) Malignant hypertension Status: Acute Brief History of Present Illness: 26yo M, PMH: LA (no stent/bypass), Brugada syndrome, presented to ED due to ~3 weeks of shortness of breath, orthopnea, and generalized fatigue. Reports 1 episode of severe chest pain ~3 weeks ago that resolved. Reports he had an LA in 2019, but states he remembers terms " widowmaker, critical occlusion" and was told only medical management due to inability / high risk of stent placement. He took medication for 3 months, then stopped since he was feeling better. He smokes 1ppd, and smokes synthetic marijuana. In the ED, he was noted to be tachycardic, elevated troponin, MARVIN, and suspected to be volume overloaded. Patient admitted for further management. Hospital Course: Patient admitted to the medical floor. His chest x-ray showed reported findings consistent with CHF. He was started on IV Lasix. Seen in consultation by cardiology. Echocardiogram done demonstrated EF of 34% and severe global hypokinesia Troponin also elevated. Patient treated with full dose Lovenox, aspirin, statin, and beta leslie Cardiology-Dr. Vieira recommended his medical records to be retrieved from [place] to confirm Brugada syndrome and asserted history of LA. Patient medical records were requested but has not been received yet. He had elevated LFTs possibly secondary to CHF/right heart failure. His blood pressure was elevated. Patient was treated with amlodipine and metoprolol. Patient's symptoms have improved, he appears compensated for CHF. Dr. Vieira did recommend discharge at this time and follow-up with him as an outpatient. Patient prescribed maintenance Lasix, Coreg, aspirin, lisinopril, amlodipine and Aldactone. Vital Signs/Physical Exam: Temp Pulse Resp BP Pulse Ox 98.0 F 84 20 166/109 H 98 07/08/21 08:00 07/08/21 08:00 07/08/21 08:00 07/08/21 08:00 07/08/21 08:00 General: Alert, In no apparent distress, Obese HEENT: Mucous membr. moist/pink Neck: JVD not distended Respiratory: Clear to auscultation bilaterally, Normal air movement Cardiovascular: Regular rate/rhythm, Normal S1 S2, Edema (Bilateral lower extremity edema significantly improved) Gastrointestinal: Soft and benign, Non-distended, No tenderness Neurological: Normal strength at 5/5 x4 extr Laboratory Data at Discharge: WBC 10.2 K/uL (4.3-10.9) 07/08/21 05:40 Hgb 13.6 g/dL (13.6-17.9) 07/08/21 05:40 Hct 43.3 % (39.6-49.0) 07/08/21 05:40 Plt Count 357 K/uL (152-406) 07/08/21 05:40 PT 15.4 SECONDS (9.5-12.5) H 07/05/21 11:05 INR 1.39 07/05/21 11:05 Sodium 141 mmol/L (136-145) 07/08/21 05:40 Potassium 3.7 mmol/L (3.5-5.1) 07/08/21 05:40 BUN 18 mg/dL (7-18) 07/08/21 05:40 Creatinine 1.31 mg/dL (0.55-1.3) H 07/08/21 05:40 Glucose 101 mg/dL (74-106) 07/08/21 05:40 Magnesium 2.4 mg/dL (1.8-2.4) 07/06/21 03:05 Total Bilirubin 0.8 mg/dL (0.2-1.0) 07/06/21 03:05 AST 138 U/L (15-37) H 07/06/21 03:05 ALT 152 U/L (12-78) H 07/06/21 03:05 Alkaline Phosphatase 59 U/L (45-117) 07/06/21 03:05 Home Medications: Amlodipine [Norvasc*] 10 mg PO DAILY #30 tab 07/08/21 Aspirin [Aspirin EC] 81 mg PO DAILY #30 tablet. 07/08/21 Atorvastatin Calcium [Lipitor] 40 mg PO BEDTIME #30 tab 07/08/21 Furosemide [Lasix] 40 mg PO DAILY #30 tab 07/08/21 Lisinopril [Zestril] 5 mg PO DAILY #30 tablet 07/08/21 Spironolactone [Aldactone] 25 mg PO DAILY #30 tab 07/08/21 carvediloL [Coreg] 6.25 mg PO BID #60 tab 07/08/21 New Medications: Spironolactone [Aldactone] 25 mg PO DAILY #30 tab Aspirin [Aspirin EC] 81 mg PO DAILY #30 tablet. carvediloL [Coreg] 6.25 mg PO BID #60 tab Furosemide [Lasix] 40 mg PO DAILY #30 tab Atorvastatin Calcium [Lipitor] 40 mg PO BEDTIME #30 tab Amlodipine [Norvasc*] 10 mg PO DAILY #30 tab Lisinopril [Zestril] 5 mg PO DAILY #30 tablet Diet: AHA Activity: Ad linda Followup: NONE,NONE [Primary Care Provider] - Lenny Vieira MD [ACTIVE - CAN ADMIT] - 1 Week Time spent managing pt's care (in minutes): 38
[2021-07-08 10:26] VITALS: O2SAT 97
--- NOTE | 2021-07-11 14:45 | PN ---
Date of Progress Note: 07/07/2021 Mr. Bonilla was admitted on 07/05/2021 with new onset congestive heart failure. I saw him on 2021. He has CHF, CAD history with MT, history of Brugada syndrome, was not really taking any medica tions at home. Records from [place] are still pending. He did have an echocardiogram today showin g an ejection fraction of 34%. He is asymptomatic, not having any further chest pain. He should be on aspirin, carvedilol, Aldactone, Lasix, Entresto, HIMA inhibitor, can go home. I will see him in e office soon. Hopefully, we will get his records soon from [place], so we can decide whether to p ursue a heart catheterization or not. ANJUM/NAHED Voice ID: [id number] Report ID: [id number]
== END 2021-07-08 10:36 | disposition home or self-care (01) | DRG 291 ==
LOC: ER 09:40 → ERHOLD 15:38 → OBSVTOIN 17:54 → 2ND 07-06 11:09
PROVIDERS: ADMIT Hospitalist; ATTEND Hospitalist
DX: I11.0 Hypertensive heart disease with heart failure (principal); I50.23 Acute on chronic systolic (congestive) heart failure; Z68.41 Body mass index [BMI] 40.0-44.9, adult; N17.9 Acute kidney failure, unspecified; I49.8 Other specified cardiac arrhythmias; I25.10 Atherosclerotic heart disease of native coronary artery without angina pectoris; E66.01 Morbid (severe) obesity due to excess calories; F12.90 Cannabis use, unspecified, uncomplicated; R77.8 Other specified abnormalities of plasma proteins; F17.210 Nicotine dependence, cigarettes, uncomplicated; I25.2 Old myocardial infarction; R74.01 Elevation of levels of liver transaminase levels; Z20.822 Contact with and (suspected) exposure to COVID-19
CPT/HCPCS: 36415; 71045; 71275; 74176; 80048; 80053; 80076; 81003; 81015; 83735; 83880; 84484; 85025; 85379; 85610; 87804; 93005; 93306; 93970; 94760; 99285; G0378; J0360; J1650; J1940; Q9967; U0003

== ENCOUNTER 2021-08-09 23:50 | Emergency (ER) | payer SELFPAY ==
--- OUTSIDE RECORDS SUMMARY | 2021-08-09 23:53 | XMS REPORT | Continuity of Care Document ---
:1995 Author Organization [facility] t Address [address] [place] [address] Care Team Providers Name Role Phone Bud LUCIA Attending Clinician Unavailable Problems Condition Condition Condition Status Onset Resolution Last Treating Co mments Source Name Details Category Date Date Treatment Clinician Date Problem Condition [facility] Allergies, Adverse Reactions, Alerts This patient has no known allergies or adverse reactions. Social History Social Habit Start Date Stop Date Quantity Comments Source Sex Assigned At [birth year] Male [place] [facility] 00:00:00 00:00:00 Smoking Status Start Date Stop Date Source Smokes tobacco daily (finding) 2019-10-20 11:37:00 [facility] Medications This patient has no known medications. Immunizations Ordered Immunization Filled Immunization Date Status Commen ts Source Name Name Tetanus/Diphtheria 2019-10-20 Completed [facility] Toxoids (Adult)/PF 00:00:00 Vital Signs Vital Name Observation Time Observation Value Comments Source Respiratory rate 2019-10-20 12:29:00 18 /min [facility] BP Systolic 2019-10-20 12:29:00 132 mm[Hg] [facility] BP Diastolic 2019-10-20 12:29:00 77 mm[Hg] [facility] Body Temperature 2019-10-20 12:29:00 98.6 [degF] [facility] Heart Rate 2019-10-20 12:29:00 74 /min [facility] Heart Rate 2019-10-20 11:05:00 79 /min [facility] Respiratory rate 2019-10-20 11:05:00 16 /min [facility] BP Systolic 2019-10-20 11:05:00 145 mm[Hg] [facility] BP Diastolic 2019-10-20 11:05:00 84 mm[Hg] [facility] Weight 2019-10-20 11:05:00 314 [lb_av] [facility] BMI (Body Mass Index) 2019-10-20 11:05:00 40.3 kg/m2 [facility] Procedures Procedure Date / Time Performed Performing Clinician Sour e Computed tomography of 2019-10-20 00:00:00 [facility] head or brain without contrast Encounters Start End Encounter Admission Attending Care Care Encounter Source Date/Time Date/Time Type Type Clinicians Facility Department ID 2019-10-20 2019-10-20 Departed DERIAN LUCIA [id number] 11:00:00 12:30:00 Emergency [facility] [address] [facility] Results This patient has no known results.
[2021-08-10 02:01] LABS: Urine Blood 1+ (Negative); Urine Glucose Trace (Negative); Urine Protein 3+ (Negative); Urine Specific Gravity 1.025 (1.005-1.030)
[2021-08-10 02:17] LABS: Absolute Lymphocytes (CBC) 1.7 K/uL (0.7-4.9); Hematocrit 40.3 % (39.6-49.0); Lymphocytes % 14.9 % (15.3-44.8); MPV 7.3 fL (7.6-11.3); RBC Red Blood Cell Count 5.24 M/uL (4.33-5.43)
[2021-08-10 02:29] LABS: Potassium 3.9 mmol/L (3.5-5.1); Troponin High Sensitivity 37.2 pg/mL (<58.9)
[2021-08-10] MEDS ORDERED: FUROSEMIDE 40 MG/4 ML VIAL ONE (05:44)
--- NOTE | 2021-08-10 07:48 | ER ---
Nurse's Notes [facility] Name: Doug Bonilla II Age: 26 yrs Sex: Male : 1995 Arrival Date: 08/09/2021 Time: 23:53 Bed 15 Private MD: Diagnosis: Heart failure, unspecified;Shortness of breath;Chest pain, unspecified Presentation: 08/09 23:59 Chief complaint: Patient states: I have CHF and I am having SOB and chest pain since ld1 this morning at 1000. Coronavirus screen: At this time, the client does not indicate any symptoms associated with coronavirus-19. Ebola Screen: No symptoms or risks identified at this time. Initial Sepsis Screen: Does the patient meet any 2 criteria? No. Patient's initial sepsis screen is negative. Does the patient have a suspected source of infection? No. Patient's initial sepsis screen is negative. Risk Assessment: Do you want to hurt yourself or someone else? Patient reports no desire to harm self or others. Onset of symptoms was August 10, 2021. 23:59 Method Of Arrival: Ambulatory ld1 23:59 Acuity: UMBERTO 3 ld1 Triage Assessment: 08/10 00:00 General: Appears in no apparent distress. comfortable, Behavior is calm, cooperative, ld1 appropriate for age. Pain: Complains of pain in chest Pain does not radiate. Pain currently is 7 out of 10 on a pain scale. Quality of pain is described as throbbing. EENT: No signs and/or symptoms were reported regarding the EENT system. Neuro: Level of Consciousness is awake, alert, obeys commands, Oriented to person, place, time, situation. Cardiovascular: Capillary refill < 3 seconds Patient's skin is warm and dry. Rhythm is regular. Respiratory: Airway is patent Respiratory effort is even, unlabored, Respiratory pattern is regular, symmetrical. GI: Abdomen is round non-distended. : No signs and/or symptoms were reported regarding the genitourinary system. Historical: - Allergies: 00:00 No Known Allergies; ld1 - PMHx: 00:00 Brugada syndrome; Myocardial infarction; ld1 - PSHx: 00:00 None; ld1 - Immunization history:: Adult Immunizations up to date, Client reports receiving the 2nd dose of the Covid vaccine. - Social history:: Smoking status: Patient reports the use of cigarette tobacco products, smokes one-half pack cigarettes per day, Patient/guardian denies using alcohol. Screenin:35 Abuse screen: Denies threats or abuse. Denies injuries from another. Nutritional sm5 screening: No deficits noted. Tuberculosis screening: No symptoms or risk factors identified. Fall Risk None identified. Assessment: 01:35 General: Appears in no apparent distress. Behavior is cooperative. Pain: Complains of sm5 pain in chest Pain began 2-3 days ago. Neuro: No deficits noted. Lozano Agitation-Sedation Scale (RASS): 0 - Alert and Calm Level of Consciousness is awake, alert, obeys commands, Oriented to person, place, time, situation. Cardiovascular: Reports chest pain, shortness of breath, Capillary refill < 3 seconds Patient's skin is warm and dry. Respiratory: Reports shortness of breath Airway is patent Trachea midline Respiratory effort is even. GI: Abdomen is obese. : Reports incontinence. 07:35 General: Appears in no apparent distress. Behavior is cooperative. Neuro: Level of ww Consciousness is awake, alert, obeys commands, Oriented to person, place, time, situation, Moves all extremities. Gait is steady, Speech is normal. Cardiovascular: Capillary refill Patient's skin is warm and dry. Respiratory: Airway is patent Respiratory effort is even. GI: Abdomen is obese. Musculoskeletal: No signs and/or symptoms reported regarding the musculoskeletal system. 08:23 Reassessment: Patient appears in no apparent distress at this time. No changes from ww previously documented assessment. Patient and/or family updated on plan of care and expected duration. Pain level reassessed. Patient is alert, oriented x 3, equal unlabored respirations, skin warm/dry/pink. gave patient a paper with each of medications and the prices from each location from [employer] to help the patient financially and verbalized the importance of taking the medications. Patient verbally understood. Vital Signs: 08/09 23:59 BP 165 / 106; Pulse 116; Resp 22; Temp 97.9(TE); Pulse Ox 99% on R/A; Weight 145.15 kg; ld1 Height 6 ft. 2 in. (187.96 cm); Pain 7/10; 08/10 02:01 BP 161 / 125; Pulse 100; Resp 13; Pulse Ox 100% on R/A; sm5 03:31 BP 169 / 104; Pulse 102; Resp 14; Pulse Ox 99% on R/A; sm5 05:13 BP 161 / 133; Pulse 98; Resp 15; Pulse Ox 96% on R/A; sm5 08:27 BP 167 / 95; Pulse 95; Resp 20; Pulse Ox 100% on R/A; ww 08/09 23:59 Body Mass Index 41.09 (145.15 kg, 187.96 cm) ld1 ED Course: 08/09 23:53 Patient arrived in ED. bp1 23:59 Arm band placed on right wrist. ld1 08/10 00:00 Triage completed. ld1 00:01 EKG completed in triage. Results shown to MD. ld1 01:18 Henna Rodrigues, MANAV is Primary Nurse. sm5 01:21 Jose Alfredo Horn MD is Attending Physician. kdr 01:35 Inserted saline lock: 20 gauge in right antecubital area, using aseptic technique. sm5 Blood collected. Patient maintains SpO2 saturation greater than 95% on room air. 01:36 Patient has correct armband on for positive identification. Bed in low position. Call sm5 light in reach. Side rails up X2. Client placed on continuous cardiac and pulse oximetry monitoring. NIBP monitoring applied. 01:52 XRAY Chest (1 view) In Process Unspecified. EDMS 02:15 No provider procedures requiring assistance completed. sm5 05:53 Inserted saline lock: 20 gauge in right forearm, using aseptic technique. sm5 08:24 IV discontinued, intact, bleeding controlled, No redness/swelling at site. Pressure ww dressing applied. Administered Medications: 05:53 Drug: Lasix (furosemide) 40 mg Route: IVP; Site: right forearm; sm5 Medication: 01:36 VIS not applicable for this client. sm5 Output: 07:10 Urine: 1300ml (Voided); Total: 1300ml. sm5 Outcome: 07:47 Discharge ordered by . kdr 08:26 Discharged to home ambulatory. ww 08:26 Condition: stable 08:26 Discharge instructions given to patient, Instructed on discharge instructions, follow up and referral plans. medication usage, safety practices, Demonstrated understanding of instructions, follow-up care, medications, Prescriptions given X 5. Good RX card given as well a list of prices of all of his medications 08:27 Patient left the ED. ww Signatures: Dispatcher [employer] EDMS Jose Alfredo Horn MD MD kdr [place], Brittany bp1 Dibbern, Lauren, RN RN ld1 Henna Rodrigues RN RN sm5 Monica Sigala RN RN ww Corrections: (The following items were deleted from the chart) 00:01 08/09 23:59 Pulse 116bpm; Resp 22bpm; Pulse Ox 99% RA; Temp 97.9F Temporal; 145.15 kg; ld1 Height 6 ft. 2 in.; BMI: 41.0; Pain 7/10; ld1
--- NOTE | 2021-08-10 07:48 | EDPHYS ---
Physician Documentation [facility] Name: Doug Bonilla II Age: 26 yrs Sex: Male : 1995 Arrival Date: 08/09/2021 Time: 23:53 Bed 15 Private MD: ED Physician Jose Alfredo Horn HPI: 08/11 00:13 This 26 yrs old Male presents to ER via Ambulatory with complaints of Chest Pain, kdr Shortness Of Breath. 00:14 The patient has shortness of breath at rest, with light activity. Onset: The kdr symptoms/episode began/occurred gradually, today. Duration: The symptoms are continuous, and are unchanged since they started. The patient's shortness of breath is aggravated by exertion, light activity, walking. Associated signs and symptoms: The patient has no apparent associated signs or symptoms. Severity of symptoms: At their worst the symptoms were mild moderate in the emergency department the symptoms are unchanged. The patient has experienced similar episodes in the past, chronically. The patient has not recently seen a physician. Earlier todayPatient states that he has a history of congestive heart failure and that recently he has been having some shortness of breath and chest pain. This began today at about 10 AM. He has had a recent admission for similar symptoms and had a fairly thorough work-up including a cardiac echo. He was prescribed numerous medications at the time of his prior discharge however due to his financial circumstances he was not able to get any of those filled and has yet to take any of the medications prescribed. Historical: - Allergies: 08/10 00:00 No Known Allergies; ld1 - PMHx: 00:00 Brugada syndrome; Myocardial infarction; ld1 - PSHx: 00:00 None; ld1 - Immunization history:: Adult Immunizations up to date, Client reports receiving the 2nd dose of the Covid vaccine. - Social history:: Smoking status: Patient reports the use of cigarette tobacco products, smokes one-half pack cigarettes per day, Patient/guardian denies using alcohol. ROS: 08/11 00:14 Constitutional: Negative for fever, chills, and weight loss, Eyes: Negative for injury, kdr pain, redness, and discharge, ENT: Negative for injury, pain, and discharge, Neck: Negative for injury, pain, and swelling, Cardiovascular: Negative for chest pain, palpitations, and edema, Abdomen/GI: Negative for abdominal pain, nausea, vomiting, diarrhea, and constipation, Back: Negative for injury and pain, : Negative for injury, bleeding, discharge, and swelling, MS/Extremity: Negative for injury and deformity, Skin: Negative for injury, rash, and discoloration, Neuro: Negative for headache, weakness, numbness, tingling, and seizure activity. Psych: Negative for depression, anxiety, suicide ideation, homicidal ideation, and hallucinations, Allergy/Immunology: Negative for hives, rash, and allergies, Endocrine: Negative for neck swelling, polydipsia, polyuria, polyphagia, and marked weight changes, Hematologic/Lymphatic: Negative for swollen nodes, abnormal bleeding, and unusual bruising. Respiratory: Positive for dyspnea on exertion, shortness of breath, at rest. Negative for hemoptysis, orthopnea, pleurisy, wheezing. Exam: 00:14 Constitutional: This is a well developed, well nourished patient who is awake, alert, kdr and in no acute distress. Head/Face: Normocephalic, atraumatic. Eyes: Pupils equal round and reactive to light, extra-ocular motions intact. Lids and lashes normal. Conjunctiva and sclera are non-icteric and not injected. Cornea within normal limits. Periorbital areas with no swelling, redness, or edema. Neck: Trachea midline, no thyromegaly or masses palpated, and no cervical lymphadenopathy. Supple, full range of motion without nuchal rigidity, or vertebral point tenderness. No Meningismus. Chest/axilla: Normal chest wall appearance and motion. Nontender with no deformity. No lesions are appreciated. Cardiovascular: Regular rate and rhythm with a normal S1 and S2. No gallops, murmurs, or rubs. Normal PMI, no JVD. No pulse deficits. Respiratory: Lungs have equal breath sounds bilaterally, clear to auscultation and percussion. No rales, rhonchi or wheezes noted. No increased work of breathing, no retractions or nasal flaring. Abdomen/GI: Soft, non-tender, with normal bowel sounds. No distension or tympany. No guarding or rebound. No evidence of tenderness throughout. Back: No spinal tenderness. No costovertebral tenderness. Full range of motion. Skin: Warm, dry with normal turgor. Normal color with no rashes, no lesions, and no evidence of cellulitis. MS/ Extremity: Pulses equal, no cyanosis. Neurovascular intact. Full, normal range of motion. Neuro: Awake and alert, GCS 15, oriented to person, place, time, and situation. Cranial nerves II-XII grossly intact. Motor strength 5/5 in all extremities. Sensory grossly intact. Cerebellar exam normal. Normal gait. Psych: Awake, alert, with orientation to person, place and time. Behavior, mood, and affect are within normal limits. 00:14 Abdomen/GI: Inspection: obese Bowel sounds: active. Vital Signs: 08/09 23:59 BP 165 / 106; Pulse 116; Resp 22; Temp 97.9(TE); Pulse Ox 99% on R/A; Weight 145.15 kg; ld1 Height 6 ft. 2 in. (187.96 cm); Pain 7/10; 08/10 02:01 BP 161 / 125; Pulse 100; Resp 13; Pulse Ox 100% on R/A; sm5 03:31 BP 169 / 104; Pulse 102; Resp 14; Pulse Ox 99% on R/A; sm5 05:13 BP 161 / 133; Pulse 98; Resp 15; Pulse Ox 96% on R/A; sm5 08:27 BP 167 / 95; Pulse 95; Resp 20; Pulse Ox 100% on R/A; ww 08/09 23:59 Body Mass Index 41.09 (145.15 kg, 187.96 cm) ld1 MDM: 07:47 Patient medically screened. kdr 08/11 00:16 Data reviewed: vital signs, nurses notes, lab test result(s), radiologic studies. kdr Counseling: I had a detailed discussion with the patient and/or guardian regarding: the historical points, exam findings, and any diagnostic results supporting the discharge/admit diagnosis, lab results, radiology results, the need for outpatient follow up. 08/10 01:21 Order name: Basic Metabolic Panel; Complete Time: 04:57 kdr 08/10 01:21 Order name: CBC with Diff; Complete Time: 03:51 kdr 08/10 01:21 Order name: Troponin HS; Complete Time: 04:57 kdr 08/10 02:01 Order name: Urine Dipstick-Ancillary; Complete Time: 03:51 EDMS 08/10 03:56 Order name: NT PRO-BNP; Complete Time: 04:57 EDMS 08/10 00:08 Order name: EKG - Nurse/Tech; Complete Time: 00:08 ld1 08/10 01:21 Order name: XRAY Chest (1 view) kdr 08/10 01:21 Order name: EKG; Complete Time: 01:22 kdr 08/10 01:21 Order name: Cardiac monitoring; Complete Time: 01:44 kdr 08/10 01:21 Order name: IV Saline Lock; Complete Time: :44 kdr 08/10 05:36 Order name: Troponin High Sensitivity; Complete Time: 07:27 kdr 08/10 08:02 Order name: EKG Electrocardiogram EDKS 08/10 01:21 Order name: Labs collected and sent; Complete Time: :44 kdr 08/10 01:38 Order name: Urine Dipstick-Ancillary (obtain specimen); Complete Time: 02:01 kdr Administered Medications: 08/10 05:53 Drug: Lasix (furosemide) 40 mg Route: IVP; Site: right forearm; sm5 Disposition Summary: 08/10/21 07:47 Discharge Ordered Location: Home kdr Problem: an acute exacerbation kdr Symptoms: have improved kdr Condition: Stable kdr Diagnosis - Heart failure, unspecified kdr - Shortness of breath kdr - Chest pain, unspecified kdr Followup: kdr - With: Private Physician - When: 2 - 3 days - Reason: If symptoms return, Further diagnostic work-up, Recheck today's complaints, Continuance of care, Re-evaluation by your physician Discharge Instructions: - Discharge Summary Sheet kdr - Shortness of Breath, Adult, [id number] kdr - Nonspecific Chest Pain, Adult, Pfpu-[id number] kdr - Heart Failure, Diagnosis, [id number] kdr - Heart Failure, Self Care, [id number] kdr - Heart Failure Action Plan kdr - Heart Failure Exacerbation kdr - Heart Failure Medicines kdr - Heart Failure and Exercise kdr - Heart Failure Eating Plan kdr Forms: - Medication Reconciliation Form kdr - Thank You Letter kdr Prescriptions: - Coreg 6.25 mg Oral tablet - take 1 tablet by ORAL route 2 times per day with food; 60 tablet; Refills: 0, kdr Product Selection Permitted - aspirin 81 mg Oral tablet,chewable - chew 1 tablet by ORAL route once daily; 30 tablet; Refills: 0, Product kdr Selection Permitted - atorvastatin 40 mg Oral tablet - take 1 tablet by ORAL route once daily; 30 tablet; Refills: 0, Product kdr Selection Permitted - Lasix 40 mg Oral Tablet - take 1 tablet by ORAL route once daily for 30 days; 30 tablet; Refills: 0, kdr Product Selection Permitted - Spironolactone 25 mg Oral Tablet - take 1 tablet by ORAL route once daily; 30 tablet; Refills: 0, Product kdr Selection Permitted Signatures: Dispatcher [employer] EDMS Jose Alfredo Horn MD MD kdr Dibbern, Lauren, RN RN ld1 Henna Rodrigues RN RN sm5 Corrections: (The following items were deleted from the chart) 03:53 03:51 PROBNP+C.LAB.BRZ ordered. EDKS EDMS
[2021-08-10 09:01] VITALS: TEMP 97.9
[2021-08-10 09:12] VITALS: BP 167/95; O2SAT 100
--- NOTE | 2021-08-10 13:45 | RAD REPORT ---
EXAM DESCRIPTION: RAD - Chest Single View - 08/10/2021 1:51 am COMPARISON: Chest radiograph July 05, 2021 CLINICAL HISTORY: CHEST PAIN FINDINGS: A single AP view of the chest demonstrates a normal cardiomediastinal silhouette. No pneumothorax. Small pleural effusions. Bibasilar opacities are present. Osseous structures are intact. IMPRESSION: Small pleural effusions. Bibasilar opacities are favored to represent mild edema. Electronically signed by: Kurtis Otero MD 08/10/2021 1:58 AM CDT Due to temporary technical issues with the PACS/Fluency reporting system, reports are being signed by the in house radiologists without. review as a courtesy to insure prompt reporting. The interpreting radiologist is fully responsible for the content of the report
--- NOTE | 2021-08-11 07:23 | EKG ---
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
--- NOTE | 2021-08-11 07:23 | EKG ---
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: [place] MEASUREMENT RESULTS: Intervals: Rate: 106 [place]: 214 QRSD: 130 QT: 304 QTc: 403 [place]: P: 37 [place]: 214 QRS: 145 T: 105 INTERPRETIVE STATEMENTS: Sinus tachycardia with 1st degree AV block Right axis deviation Nonspecific intraventricular block Possible Right ventricular hypertrophy Cannot rule out Septal infarct, age undetermined Consider right ventricular involvement in acute inferior infarct Abnormal ECG Compared to ECG 07/05/2021 11:26:01 First degree AV block now present Right-axis deviation now present Sinus rhythm no longer present Right bundle-branch block no longer present Myocardial infarct finding still present Electronically Signed On 08-11-21 07:18:19 CDT by Lenny Vieira
== END 2021-08-10 08:27 | disposition home or self-care (01) ==
LOC: ER 23:50
DX: I50.9 Heart failure, unspecified (principal); R07.9 Chest pain, unspecified; F17.210 Nicotine dependence, cigarettes, uncomplicated
CPT/HCPCS: 36415; 71045; 80048; 81003; 83880; 84484; 85025; 93005; 96374; 99284; J1940

== ENCOUNTER 2022-06-17 13:17 | Emergency (ER) | payer SELFPAY ==
--- OUTSIDE RECORDS SUMMARY | 2022-06-17 13:20 | XMS REPORT | Continuity of Care Document ---
:1995 Author Organization [facility] t Address [address] [place] [address] Care Team Providers Name Role Phone LOUIE LUCIA Attending Clinician Unavailable Problems Condition Condition Condition Status Onset Resolution Last Treating Co mments Source Name Details Category Date Date Treatment Clinician Date Problem Condition [facility] Allergies, Adverse Reactions, Alerts This patient has no known allergies or adverse reactions. Social History Social Habit Start Date Stop Date Quantity Comments Source Sex Assigned At [birth year] Male [place] ([facility] 00:00:00 00:00:00 Smoking Status Start Date Stop Date Source Smokes tobacco daily (finding) 2019-10-20 11:37:00 [place] [facility] Medications This patient has no known medications. Immunizations Ordered Immunization Filled Immunization Date Status Commen ts Source Name Name Tetanus/Diphtheria 2019-10-20 Completed [facility] Toxoids (Adult)/PF 00:00:00 Vital Signs Vital Name Observation Time Observation Value Comments Source Respiratory rate 2019-10-20 12:29:00 18 /min [facility] BP Systolic 2019-10-20 12:29:00 132 mm[Hg] [place] [facility] BP Diastolic 2019-10-20 12:29:00 77 mm[Hg] [place] [facility] Body Temperature 2019-10-20 12:29:00 98.6 [degF] [facility] Heart Rate 2019-10-20 12:29:00 74 /min [place] ([facility] Heart Rate 2019-10-20 11:05:00 79 /min [place] [facility] Respiratory rate 2019-10-20 11:05:00 16 /min [facility] BP Systolic 2019-10-20 11:05:00 145 mm[Hg] [place] [facility] BP Diastolic 2019-10-20 11:05:00 84 mm[Hg] [place] [facility] Weight 2019-10-20 11:05:00 314 [lb_av] [facility] BMI (Body Mass Index) 2019-10-20 11:05:00 40.3 kg/m2 [facility] Procedures Procedure Date / Time Performed Performing Clinician Sour e Computed tomography of 2019-10-20 00:00:00 [facility] head or brain without contrast Encounters Start End Encounter Admission Attending Care Care Encounter Source Date/Time Date/Time Type Type Clinicians Facility Department ID 2019-10-20 2019-10-20 Departed DERIAN LUCIA [id number] 11:00:00 12:30:00 Emergency [facility] [address] [facility] Results This patient has no known results.
--- NOTE | 2022-06-17 14:29 | RAD REPORT ---
EXAM DESCRIPTION: [place] Single View06/17/2022 2:11 pm CLINICAL HISTORY: sob COMPARISON: 2020 FINDINGS: The lungs appear clear of acute infiltrate. The heart is moderately enlarged IMPRESSION: No acute abnormalities displayed
[2022-06-17 16:07] LABS: Absolute Lymphocytes (CBC) 1.8 K/uL (0.7-4.9); Hematocrit 42.3 % (39.6-49.0); Lymphocytes % 15.8 % (15.3-44.8); MCV 81.8 fL (80-100); MPV 6.8 fL (7.6-11.3); RBC Red Blood Cell Count 5.18 M/uL (4.33-5.43)
[2022-06-17 16:15] LABS: Protime INR 1.48
[2022-06-17 16:34] LABS: Albumin 3.2 g/dL (3.4-5.0); Bilirubin Total 1.2 mg/dL (0.2-1.0); Magnesium 2.4 mg/dL (1.6-2.4); Potassium 4.5 mEq/L (3.5-5.1); Protein, Total 7.3 g/dL (6.4-8.2)
[2022-06-17 16:42] LABS: Troponin High Sensitivity 3855.5 pg/mL (<58.9)
[2022-06-17] MEDS ORDERED: ASPIRIN 81 MG CHEWABLE TABLET ONE (17:00)
[2022-06-17] MEDS ORDERED: LABETALOL 20 MG/4ML SYRINGE IV ONE (17:00)
--- NOTE | 2022-06-17 17:07 | EDPHYS ---
Physician Documentation [facility] Name: Doug Bonilla II Age: 27 yrs Sex: Male : 1995 Arrival Date: 06/17/2022 Time: 13:17 Bed 7 Private MD: ED Physician Jhon Avila HPI: 06/17 16:08 This 27 yrs old Male presents to ER via Ambulatory with complaints of Shortness Of kb Breath. 16:08 The patient has shortness of breath with light activity. Onset: The symptoms/episode kb began/occurred 2 week(s) ago. Duration: The symptoms are continuous. The patient's shortness of breath is aggravated by exertion, light activity. Associated signs and symptoms: Pertinent positives: chest pain, Pertinent negatives: non-productive cough, productive cough, fever. Severity of symptoms: At their worst the symptoms were moderate in the emergency department the symptoms are unchanged. The patient has experienced similar episodes in the past. The patient has not recently seen a physician. Pt reports chest pain, shortness of breath and "swelling" for 2 weeks. States he came today because his boss made him. States he has not been to a PCP or interventional nurse for management of CHF and takes no medications. Historical: - Allergies: 13:45 No Known Allergies; ld1 - PMHx: 13:45 Brugada syndrome; Myocardial infarction; Congestive heart failure; ld1 - PSHx: 13:45 None; ld1 - Immunization history:: Adult Immunizations up to date, Client reports receiving the 2nd dose of the Covid vaccine. - Social history:: Smoking status: Patient reports the use of cigarette tobacco products, smokes one pack cigarettes per day. Patient/guardian denies using alcohol. ROS: 16:07 Constitutional: Negative for fever, chills, and weight loss. kb 16:07 Cardiovascular: Positive for chest pain, edema. 16:07 Respiratory: Positive for dyspnea on exertion, shortness of breath. 16:07 All other systems are negative. Exam: 14:24 Constitutional: This is a well developed, well nourished patient who is awake, alert, kb and in no acute distress. Head/Face: Normocephalic, atraumatic. ENT: Moist Mucous membranes Chest/axilla: Normal chest wall appearance and motion. Cardiovascular: Regular rate and rhythm with a normal S1 and S2. No gallops, murmurs, or rubs. No pulse deficits. Abdomen/GI: Soft, non-tender. No distention Skin: Warm, dry with normal turgor. Normal color. MS/ Extremity: Pulses equal, no cyanosis. Neurovascular intact. Full, normal range of motion. Neuro: Awake and alert, GCS 15, oriented to person, place, time, and situation. Moves all extremities. Normal gait. 14:24 Cardiovascular: Edema: pedal edema, that is mild. 14:24 ECG was reviewed by the Attending Physician. 14:25 Respiratory: the patient does not display signs of respiratory distress, Respirations: kb normal, Breath sounds: decreased breath sounds, that are mild, are located in both bases. Vital Signs: 13:43 BP 171 / 126; Pulse 95; Resp 18; Temp 98.6(O); Pulse Ox 99% on R/A; Weight 140.61 kg; ld1 Height 6 ft. 2 in. ; Pain 6/10; 15:20 BP 163 / 137; Pulse 89; Resp 17; Pulse Ox 94% ; bp 16:30 BP 175 / 142; Pulse 92; Resp 17; Pulse Ox 93% ; bp 17:30 BP 158 / 114; Pulse 84; Resp 20; Pulse Ox 97% ; bp 18:12 BP 150 / 123; Pulse 79; Resp 18; Pulse Ox 96% on R/A; ph 19:29 BP 149 / 104; Pulse 81; Resp 20 S; Pulse Ox 95% on R/A; as6 13:43 Body Mass Index 39.80 (140.61 kg, 187.96 cm) ld1 13:43 Pain Scale: Adult ld1 MDM: 13:24 Patient medically screened. kb 16:09 Differential diagnosis: CHF exacerbation, Myocardial Infarction pulmonary edema, kb Unstable Angina. Data reviewed: vital signs, nurses notes. 17:06 Consideration of Admission/Observation Pt will be transferred . Management of patient cortez was discussed with the following: Pastry Assistant: Dr Davila recommends transfer for urgent heart cath. Care significantly affected by the following chronic conditions: Congestive Heart Failure, Obesity. Counseling: I had a detailed discussion with the patient and/or guardian regarding: the historical points, exam findings, and any diagnostic results supporting the discharge/admit diagnosis, lab results, radiology results, the need to transfer to another facility, for higher level of care. 17:24 ED course: Dr Palma, interventional nurse at [facility], accepts pt for transfer. Requests kb nitro drip. 06/17 13:35 Order name: CBC with Diff; Complete Time: 16:20 kb 06/17 13:35 Order name: Magnesium; Complete Time: 16:42 kb 06/17 13:35 Order name: NT PRO-BNP; Complete Time: 16:42 kb 06/17 13:35 Order name: PT-INR; Complete Time: 16:20 kb 06/17 13:35 Order name: Troponin HS; Complete Time: 16:42 kb 06/17 13:35 Order name: CMP; Complete Time: 16:42 kb 06/17 16:57 Order name: Ptt, Activated; Complete Time: 17:26 ph 06/17 16:58 Order name: SARS RAPID; Complete Time: 18:05 ph 06/17 13:35 Order name: XRAY Chest (1 view); Complete Time: 14:34 kb 06/17 13:35 Order name: EKG; Complete Time: 13:36 kb 06/17 13:35 Order name: Cardiac monitoring; Complete Time: 14:46 kb 06/17 13:35 Order name: EKG - Nurse/Tech; Complete Time: 13:46 kb 06/17 13:35 Order name: IV Saline Lock; Complete Time: 14:46 kb 06/17 13:35 Order name: Labs collected and sent; Complete Time: 15:56 kb 06/17 13:35 Order name: O2 Per Protocol; Complete Time: 14:06 kb 06/17 13:35 Order name: O2 Sat Monitoring; Complete Time: 14:06 kb 06/17 17:15 Order name: Labs - recollect needed: sars/ specimen not labeled/ labels in the bag not eb on specimen; Complete Time: 17:36 EC:24 Rate is 96 beats/min. Rhythm is regular. QRS [place] is Normal. CT interval is normal at kb 192 msec. QRS interval is normal at 160 msec. QT interval is prolonged at 533 msec. Administered Medications: 17:38 Drug: Aspirin PO Chewable Tablet 324 mg Route: PO; ph 19:45 Follow up: Response: No adverse reaction as6 17:38 Drug: Labetalol IV 10 mg Route: IV; Rate: calculated rate; Site: right antecubital; ph 19:45 Follow up: Response: No adverse reaction; IV Status: Completed infusion; IV Intake: 2ml as6 17:38 Drug: Heparin (TN-Bolus No thrombolytic) - HEParin IVP 60 units/kg {Co-Signature: bp ph (Carlyle Salinas RN).} Route: IVP; Site: right antecubital; 19:45 Follow up: Response: No adverse reaction as6 17:39 Drug: Heparin ([place] Drip) - (D5W IV 500 ml, [place] [address] units) 12 units/kg/hr ph {Co-Signature: bp (Carlyle Salinas RN).} Route: IV; Rate: calculated rate; Site: right antecubital; 19:45 Follow up: Response: No adverse reaction; IV Status: Infusion continued upon transfer; as6 IV Intake: 50ml 18:12 Drug: Nitro Drip - (Nitroglycerin IV 50 mg, D5W IV 250 ml) 5 mcg/min Route: IV; Rate: ph 2.5 mcg/min; Site: right hand; 19:45 Follow up: Response: No adverse reaction; IV Status: Infusion continued upon transfer; as6 IV Intake: 20ml 19:28 Drug: morphine IVP or IV 4 mg Route: IVP; Infused Over: 4 mins; Site: right antecubital;as6 19:44 Follow up: Response: No adverse reaction as6 19:28 Drug: Ondansetron IVP 4 mg Route: IVP; Site: right antecubital; as6 19:44 Follow up: Response: No adverse reaction as6 Disposition: 16:45 Co-signature as Attending Physician, Jhon Avila DO I reviewed the patient's care ms3 provided by Advanced Practice Provider \\T\\ agree w/ the diagnosis \\T\\ care plan. I personally saw the pt \\T\\ performed a substantive portion of the visit, incldng all aspects of the (History/Exam/Medical Decision Making). PA/MEAT SEAFOOD ASSOCIATE's history reviewed, patient interviewed, and examined. HPI: 27-year-old male with past medical history of Brugada syndrome, myocardial infarction, congestive heart failure presents for shortness of breath that has been ongoing for 1 week. Patient states last night he started developing rapid heartbeat that he noticed on the left side of his chest. Patient denies pain at this time My personal exam of patient reveals: On exam patient is alert and orient x4, in no apparent distress, obese. Heart rate and rhythm are regular without murmurs rubs or gallops. Lungs are clear to auscultation bilaterally. Abdomen is nontender to palpation with bowel sounds present. Skin is dry and without rashes. Patient with troponin of 3855. Case was discussed with Dr. Davila and he recommends transfer for urgent cath. We will start heparin drip with bolus. Patient has received aspirin. Patient updated on diagnosis and necessity for transfer I agree with assessment and care plan and confirm the diagnosis (es) above. 16:58 Critical Care:. ms3 Disposition Summary: 06/17/22 17:07 Transfer Ordered Transfer Location: [facility] kb Reason: Higher level of care kb Problem: new kb Symptoms: are unchanged kb Condition: Serious(06/17/22 17:07) kb Accepting Physician: Akosua Momin(06/17/22 19:52) as6 Diagnosis - NSTEMI kb Forms: - Medication Reconciliation Form kb - SBAR form kb Critical care time excluding procedures: 16:58 Critical care time: Bedside Care: 30 minutes, Consultation: 10 minutes. Total time: 40 ms3 minutes Signatures: Dispatcher [employer] EDMS Shy Lao, AILYN-C INSEAM TRIMMER-Loli Soliz, RN RN Viv Lnadin Jhon Avila DO DO ms3 Pauly Avila RN RN ld1 Yossi Lozano RN RN as6 Santiago Pardo MD MD sp4 Carlyle Salinas RN bp Corrections: (The following items were deleted from the chart) 16:58 16:45 Co-signature as Attending PhysicianJhon DO I was immediately available ms3 on-site in the Emergency Department for consultation in the care of the patient. ms3 17:07 17:07 Dr toro kb 17:07 17:07 Checo toro kb 17:25 17:07 Dr toro kb 17:50 17:25 Dr. Louie toro eb 19:52 17:50 Akosua Momin eb as6
--- NOTE | 2022-06-17 17:07 | ER ---
Nurse's Notes [facility] Name: Doug Bonilla II Age: 27 yrs Sex: Male : 1995 Arrival Date: 06/17/2022 Time: 13:17 Bed 7 Private MD: Diagnosis: NSTEMI Presentation: 06/17 13:43 Chief complaint: Patient states: CP, SOB, nausea, edema to Left upper chest X 2 weeks. ld1 Coronavirus screen: At this time, the client does not indicate any symptoms associated with coronavirus-19. Ebola Screen: No symptoms or risks identified at this time. Initial Sepsis Screen: Does the patient meet any 2 criteria? No. Patient's initial sepsis screen is negative. Does the patient have a suspected source of infection? No. Patient's initial sepsis screen is negative. Risk Assessment: Do you want to hurt yourself or someone else? Patient reports no desire to harm self or others. Onset of symptoms was June 17, 2022. 13:43 Method Of Arrival: Ambulatory ld1 13:43 Acuity: UMBERTO 3 ld1 Triage Assessment: 13:45 General: Appears in no apparent distress. comfortable, Behavior is calm, cooperative, ld1 appropriate for age. Pain: Complains of pain in chest Pain does not radiate. Pain currently is 6 out of 10 on a pain scale. Quality of pain is described as throbbing, Pain began suddenly. EENT: No signs and/or symptoms were reported regarding the EENT system. Neuro: Level of Consciousness is awake, alert, obeys commands, Oriented to person, place, time, situation. Cardiovascular: Reports chest pain, Capillary refill < 3 seconds Patient's skin is warm and dry. Respiratory: Reports shortness of breath Airway is patent Respiratory effort is even, unlabored, Onset: The symptoms/episode began/occurred suddenly, the patient has moderate shortness of breath. GI: Abdomen is round obese. : No signs and/or symptoms were reported regarding the genitourinary system. Derm: No signs and/or symptoms reported regarding the dermatologic system. Musculoskeletal: No signs and/or symptoms reported regarding the musculoskeletal system. Historical: - Allergies: 13:45 No Known Allergies; ld1 - PMHx: 13:45 Brugada syndrome; Myocardial infarction; Congestive heart failure; ld1 - PSHx: 13:45 None; ld1 - Immunization history:: Adult Immunizations up to date, Client reports receiving the 2nd dose of the Covid vaccine. - Social history:: Smoking status: Patient reports the use of cigarette tobacco products, smokes one pack cigarettes per day. Patient/guardian denies using alcohol. Screenin:[address] [facility] ED Fall Risk Assessment (Adult) History of falling in the last 3 months, bp including since admission No falls in past 3 months (0 pts). Abuse screen: Denies threats or abuse. Denies injuries from another. Nutritional screening: No deficits noted. Tuberculosis screening: No symptoms or risk factors identified. Assessment: 14:50 General: PT RECD FROM TRIAGE. bp 15:00 Reassessment: PHLEBOTOMY CONTACTED FOR LAB DRAW. bp 15:40 Reassessment: Phlebotomy contacted for help w/ lab draw. ph 15:49 Reassessment: Phlebotomy at bedside. ph 18:04 Reassessment: REPORT TO [facility]. bp 19:29 Pain: Complains of pain in chest. as6 Vital Signs: 13:43 BP 171 / 126; Pulse 95; Resp 18; Temp 98.6(O); Pulse Ox 99% on R/A; Weight 140.61 kg; ld1 Height 6 ft. 2 in. ; Pain 6/10; 15:20 BP 163 / 137; Pulse 89; Resp 17; Pulse Ox 94% ; bp 16:30 BP 175 / 142; Pulse 92; Resp 17; Pulse Ox 93% ; bp 17:30 BP 158 / 114; Pulse 84; Resp 20; Pulse Ox 97% ; bp 18:12 BP 150 / 123; Pulse 79; Resp 18; Pulse Ox 96% on R/A; ph 19:29 BP 149 / 104; Pulse 81; Resp 20 S; Pulse Ox 95% on R/A; as6 13:43 Body Mass Index 39.80 (140.61 kg, 187.96 cm) ld1 13:43 Pain Scale: Adult ld1 ED Course: 13:21 Patient arrived in ED. mr 13:24 Shy Lao FNP-C is PHCP. kb 13:24 Jhon Avila DO is Attending Physician. kb 13:45 Triage completed. ld1 13:45 Arm band placed on right wrist. EKG completed in triage. Results shown to MD. ld1 14:12 XRAY Chest (1 view) In Process Unspecified. EDMS 14:16 Inserted saline lock: 22 gauge in right antecubital area, using aseptic technique. mb9 14:50 Patient has correct armband on for positive identification. Bed in low position. Call bp light in reach. Side rails up X2. 14:57 Carlyle Salinas, RN is Primary Nurse. bp 16:56 initiated a transfer with Isabel Bliss Rn from the [facility]. eb 17:20 connected the polo coach systems integration engineer for [facility] with Shy Quiroga for patient eb transfer consultation. 17:31 administrative approval given by Isabel Bliss Rn/ patient has been accepted to [facility] CCU 6108/ Dr. Akosua Palma has accepted the patient in transfer/ report to be called to [phone]. 19:25 Primary Nurse role handed off by Carlyle Salinas RN 19:28 Yossi Lozano RN is Primary Nurse. as6 Administered Medications: 17:38 Drug: Aspirin PO Chewable Tablet 324 mg Route: PO; ph 19:45 Follow up: Response: No adverse reaction as6 17:38 Drug: Labetalol IV 10 mg Route: IV; Rate: calculated rate; Site: right antecubital; ph 19:45 Follow up: Response: No adverse reaction; IV Status: Completed infusion; IV Intake: 2ml as6 17:38 Drug: Heparin ([place]-Bolus No thrombolytic) - HEParin IVP 60 units/kg {Co-Signature: bp ph (Carlyle Salinas RN).} Route: IVP; Site: right antecubital; 19:45 Follow up: Response: No adverse reaction as6 17:39 Drug: Heparin ([place] Drip) - (D5W IV 500 ml, [place] [address] units) 12 units/kg/hr ph {Co-Signature: bp (Carlyle Salinas RN).} Route: IV; Rate: calculated rate; Site: right antecubital; 19:45 Follow up: Response: No adverse reaction; IV Status: Infusion continued upon transfer; as6 IV Intake: 50ml 18:12 Drug: Nitro Drip - (Nitroglycerin IV 50 mg, D5W IV 250 ml) 5 mcg/min Route: IV; Rate: ph 2.5 mcg/min; Site: right hand; 19:45 Follow up: Response: No adverse reaction; IV Status: Infusion continued upon transfer; as6 IV Intake: 20ml 19:28 Drug: morphine IVP or IV 4 mg Route: IVP; Infused Over: 4 mins; Site: right antecubital;as6 19:44 Follow up: Response: No adverse reaction as6 19:28 Drug: Ondansetron IVP 4 mg Route: IVP; Site: right antecubital; as6 19:44 Follow up: Response: No adverse reaction as6 Medication: 15:49 VIS not applicable for this client. ph Intake: 19:45 IV: 2ml; Total: 2ml. as6 19:45 IV: 50ml; Total: 52ml. as6 19:45 IV: 20ml; Total: 72ml. as6 Outcome: 17:07 ER care complete, transfer ordered by . kb 19:52 Patient left the ED. as6 Signatures: Dispatcher [employer] EDMS Shy Lao, AILYN-C LEGAL CLERK-Magaly Amaro Loli Curtis, RN RN ph Carlyle Salinas, RN RN bp Viv Landin Lauren RN RN Susy Jamil Ashby, RN RN as6 Armando, Magaly Adamson, RN RN mb9 Carlyle Salinas RN bp Corrections: (The following items were deleted from the chart) 15:49 15:46 Reassessment: Phlebotomy contacted for help w/ lab draw ph ph
[2022-06-17] MEDS ORDERED: HEPARIN/D5W 25,000 UNIT/500 ML BAG IV ONE (17:11)
[2022-06-17] MEDS ORDERED: HEPARIN 5000 UNIT/ML 1 ML VIAL ONE (17:11)
[2022-06-17 17:58] LABS: SARS-CoV-2 Antigen Rapid Res Negative (Negative)
[2022-06-17] MEDS ORDERED: NITROGLYCERIN/D5W 50 MG/250 ML BTL IV ONE (18:05)
[2022-06-17] MEDS ORDERED: ONDANSETRON 4 MG/2 ML VIAL ONE (19:26)
[2022-06-17] MEDS ORDERED: MORPHINE 4 MG/ML SYR ONE (19:26)
[2022-06-17 20:16] VITALS: TEMP 98.6
[2022-06-17 20:22] VITALS: BP 149/104; O2SAT 95
--- NOTE | 2022-06-18 15:21 | EKG ---
Test Date: 2022-06-17 Test Time: 13:46:23 Fuel Cell Binder: MERI MEASUREMENT RESULTS: Intervals: Rate: 96 [place]: 192 QRSD: 160 QT: 422 QTc: 533 Beecher: P: 40 [place]: 192 QRS: 119 T: 0 INTERPRETIVE STATEMENTS: Normal sinus rhythm Right bundle branch block Inferior infarct, age undetermined Anterolateral infarct, age undetermined Abnormal ECG Compared to ECG 08/10/2021 00:02:35 Sinus tachycardia no longer present Myocardial infarct finding still present Electronically Signed On 06-18-22 15:20:23 CDT by Adrián Davila
== END 2022-06-17 19:52 | disposition short-term general hospital (02) ==
LOC: ER 13:17
DX: I21.4 Non-ST elevation (NSTEMI) myocardial infarction (principal); Z20.822 Contact with and (suspected) exposure to COVID-19
CPT/HCPCS: 36415; 71045; 80053; 83735; 83880; 84484; 85025; 85610; 85730; 87811; 93005; 99285; J1644; J2405

== ENCOUNTER → 2023-04-15 | Emergency (ER) | payer OTHER, SELFPAY ==
[~2023-04-15] MED LIST: ALBUTEROL 2.5 MG/3 ML NEB SOL ONE; ASPIRIN 81 MG CHEWABLE TABLET ONE; FOLIC ACID 5 MG/ML VIAL ONE; FUROSEMIDE 40 MG/4 ML VIAL ONE; IPRATROPIUM BROM 0.5MG/2.5ML ONE; NA CHLORIDE 0.9% 100 ML ONE; TENECTEPLASE 50 MG/10 ML VIAL IV ONE
--- NOTE | 2023-04-15 18:13 | RAD REPORT ---
EXAM DESCRIPTION: CT - Ct Stroke Brain Wo Cont - 04/15/2023 6:00 pm CLINICAL HISTORY: STROKE ALERT COMPARISON: No comparisons TECHNIQUE: Noncontrast head CT images were obtained without IV contrast. Multiplanar reformats were generated and reviewed. All CT scans are performed using dose optimization technique as appropriate and may include automated exposure control or mA/KV adjustment according to patient size. FINDINGS: High right parietal cortical/subcortical hypodensity. Linear right superior cerebellar fol ia focus of hypodensity as well. No intracranial hemorrhage, mass, or edema. Midline structures are unremarkable. Normal ventricular caliber for age. Bliss-white matter differentiation is preserved elsewhere, without evidence of acute infarct. No abnor mal extra-axial fluid collections. Mastoid air cells and visualized portions of the paranasal sinuses are clear. No acute bony findings. IMPRESSION: No evidence of an acute intracranial hemorrhage or mass effect. Areas of hypodensity involving the high right parietal cortex/subcortical white matter, and right cer ebellar hemisphere, favoring subacute infarcts. If there is concern for acute ischemia, additional ev aluation by stroke protocol MRI may be helpful. The findings were communicated to Jose Alfredo Horn on 04/15/2023 at 18:08 hours.
[2023-04-15 18:27] LABS: Absolute Lymphocytes (CBC) 1.8 K/uL (0.7-4.9); Lymphocytes % 15.9 % (15.3-44.8); MCV 79.5 fL (80-100); MPV 6.5 fL (7.6-11.3); Platelets 393 thou/uL (152-406); RBC Red Blood Cell Count 5.04 M/uL (4.33-5.43)
--- NOTE | 2023-04-15 18:42 | RAD REPORT ---
EXAM DESCRIPTION: [facility] Single View04/15/2023 6:22 pm CLINICAL HISTORY: weakness COMPARISON: Chest Pa And Lat (2 Views) dated 01/23/2023; Chest Single View dated 01/22/2023; Chest Sin gle View dated 01/21/2023; Chest Single View dated 06/17/2022 TECHNIQUE: Portable AP view of the chest. FINDINGS: Progressive hazy central opacities and small layering effusions more progressive on the le ft. No pneumothorax or effusion. The heart is again enlarged. Mediastinal contours are unremarkable. IMPRESSION: Findings suggestive of pulmonary edema which may be of cardiogenic origin.
[2023-04-15 18:44] LABS: Albumin 3.2 g/dL (3.4-5.0); Bilirubin Direct 0.4 mg/dL (0-0.2); Bilirubin Indirect, Calculated 0.6 mg/dL (0.2-0.8); Potassium 4.2 mEq/L (3.5-5.1); Protein, Total 7.9 g/dL (6.4-8.2)
[2023-04-15 18:46] LABS: Protime INR 1.54
[2023-04-15 18:47] LABS: Troponin High Sensitivity 337.5 pg/mL (<58.9)
--- NOTE | 2023-04-15 18:54 | EDPHYS ---
Physician Documentation [facility] Name: Doug Bonilla II Age: 27 yrs Sex: Male : 1995 Arrival Date: 04/15/2023 Time: 17:49 Bed 7 Private MD: ED Physician Jose Alfredo Horn HPI: 04/15 18:00 This 27 yrs old Male presents to ER via EMS with complaints of S/S of Possible Stroke. cp 18:00 The patient's problem is reported as a facial droop, on right, paresthesias, in right cp upper extremity, in right lower extremity, in right side of face, weakness, in the right upper extremity, in the right lower extremity, in the right side of face, aphasia. Onset: The symptoms/episode began/occurred 1300 today. 18:00 Duration: The episode is continuous. cp 18:00 Associated signs and symptoms: Pertinent positives: shortness of breath. Patient's cp baseline: Neuro: alert and fully oriented, Motor: no deficits, Ambulation: walks without assistance, Speech: normal. Historical: - Allergies: 18:14 No Known Allergies; hb - PMHx: 18:14 Brugada syndrome; Congestive heart failure; Myocardial infarction; hb - Immunization history:: Adult Immunizations up to date. - Social history:: Smoking status: Patient denies any tobacco usage or history of. ROS: 18:03 Neuro: Positive for numbness, weakness, aphasia, cp 18:03 Respiratory: Positive for shortness of breath, at rest. cp 18:03 Eyes: Negative for injury, pain, redness, and discharge, cp 18:03 Constitutional: Negative for body aches, chills, fever, 18:03 Cardiovascular: Negative for chest pain, palpitations, 18:03 Abdomen/GI: Negative for abdominal pain, vomiting, diarrhea, constipation, 18:03 ENT: Negative for drainage from ear(s), ear pain, sore throat, difficulty handling cp secretions, 18:03 All other systems are negative, Exam: 18:05 Radiologist reports: subacute areas of infarct right side cp 18:05 Head/Face: Normocephalic, atraumatic. cp 18:05 Constitutional: The patient appears in no acute distress, alert, awake, non-diaphoretic, non-toxic, well developed, well nourished, obese, 18:05 Eyes: Periorbital structures: appear normal, Pupils: equal, round, and reactive to cp light and accomodation, Extraocular movements: intact throughout, Conjunctiva: normal, no exudate, no injection, Sclera: no appreciated abnormality, Lids and lashes: appear normal, bilaterally, 18:05 ENT: External ear(s): are unremarkable, Nose: is normal, Mouth: Lips: moist, Oral mucosa: pink and intact, moist, Posterior pharynx: is normal, airway is patent, no erythema, no exudate, 18:05 Chest/axilla: Inspection: normal, Palpation: is normal, no crepitus, no tenderness, 18:05 Cardiovascular: Rate: normal, Rhythm: regular, Edema: ankle edema, that is very mild, JVD: is not appreciated, 18:05 Respiratory: the patient does not display signs of respiratory distress, Respirations: labored breathing, that is mild, Breath sounds: are clear throughout, no decreased breath sounds, no stridor, no wheezing, 18:05 Abdomen/GI: Inspection: obese Palpation: abdomen is soft and non-tender, in all quadrants, 18:05 Back: pain, is absent, ROM is normal, 18:05 Neuro: Mentation: is normal, Cerebellar function: Romberg testing is abnormal, right side with drift, dysmetria is noted on the right, Motor: moves all fours, decreased right arm and right leg, Sensation: light touch is decreased in the right side of face and right arm and right leg, 18:33 ECG was reviewed by the Attending Physician. cp Vital Signs: 18:19 Weight 168.74 kg (M); hb 18:55 BP 155 / 119; Pulse 82; Resp 17; Pulse Ox 99% on R/A; hb 19:15 BP 166 / 102; Pulse 81; Resp 18; Pulse Ox 99% ; as9 19:30 BP 168 / 101; Pulse 86; Resp 16; Pulse Ox 99% on R/A; as9 19:45 BP 171 / 103; Pulse 81; Resp 17; Pulse Ox 99% on R/A; as9 20:00 BP 175 / 100; Pulse 95; Resp 16; Pulse Ox 99% on R/A; as9 20:30 BP 171 / 103; Pulse 80; Resp 18; Pulse Ox 100% on R/A; as9 21:00 BP 157 / 106; Pulse 76; Resp 17; Temp 98; Pulse Ox 99% on R/A; as9 NIH Stroke Scale Scores: 17:55 NIHSS Score: 8 cp4 18:05 NIHSS Score: 9 cp Jose L Coma Score: 21:00 Eye Response: spontaneous(4). Motor Response: obeys commands(6). Verbal Response: as9 oriented(5). Total: 15. MDM: 17:55 Patient medically screened. 18:15 Management of patient was discussed with the following: Menagerie Caretaker: DR Loza concerning use of TNK. Recommends administration due to symptoms. 19:00 Differential diagnosis: CVA, TIA, metabolic disorder, drug effects. 20:20 Data reviewed: vital signs, nurses notes, lab test result(s), EKG, radiologic studies, CT scan, plain films. 20:20 I considered the following discharge prescriptions or medication management in the emergency department Medications were administered in the Emergency Department. See MAR. Independent interpretation of the following test(s) in the Emergency Department EKG: See my EKG interpretation above. 20:30 Management of patient was discussed with the following: DR Kirk, neurologist cp \T\[facility] will accept patient as transfer after discussion. 04/15 17:56 Order name: Basic Metabolic Panel; Complete Time: 19:06 04/15 19:10 Interpretation: Normal except: GFR 83. 04/15 17:56 Order name: CBC with Diff 04/15 20:18 Interpretation: Normal except: WBC 11.20; HGB 13.1; MCV 79.5; MCH 26.0; RDW 17.3; cp EOSINOPHIL % 5.1; EOSA 0.6; MPV 6.5. 04/15 17:56 Order name: Hepatic Function; Complete Time: 19:06 04/15 17:56 Order name: High Sensitivity Troponin; Complete Time: 19:06 04/15 19:09 Interpretation: Reviewed. 04/15 17:56 Order name: Magnesium; Complete Time: 19:06 04/15 17:56 Order name: Protime (+inr); Complete Time: 19:06 04/15 17:56 Order name: Ptt, Activated; Complete Time: 19:06 04/15 18:23 Order name: COVID-19 SARS RT PCR; Complete Time: 20:12 cp 04/15 18:23 Order name: Influenza Screen (a \T\ B); Complete Time: 20:12 cp 04/15 18:35 Order name: glucometer results - FOR PT WITH NO ID; Complete Time: 20:12 aa5 04/15 20:52 Order name: Manual Differential EDMS 04/15 17:56 Order name: CT Stroke Brain w/o Contrast; Complete Time: 18:20 cp 04/15 18:20 Interpretation: Report reviewed. cp 04/15 17:56 Order name: Stroke CXR 1 View; Complete Time: 19:06 cp 04/15 18:18 Order name: CT Head Angio; Complete Time: 20:17 cp 04/15 18:20 Order name: CT Neck Angio; Complete Time: 20:12 cp 04/15 17:56 Order name: EKG; Complete Time: 17:57 cp 04/15 17:56 Order name: Accucheck; Complete Time: 18:36 cp 04/15 17:56 Order name: Cardiac monitoring; Complete Time: 18:36 cp 04/15 17:56 Order name: EKG - Nurse/Tech; Complete Time: 18:36 cp 04/15 17:56 Order name: IV Saline Lock; Complete Time: 18:36 cp 04/15 17:56 Order name: Labs collected and sent; Complete Time: 18:36 cp 04/15 17:56 Order name: NPO; Complete Time: 18:36 cp 04/15 17:56 Order name: O2 Per Protocol; Complete Time: 18:36 cp 04/15 17:56 Order name: O2 Sat Monitoring; Complete Time: 18:36 cp 04/15 17:56 Order name: Stroke Swallow Screen; Complete Time: 19:09 cp EC:33 Rate is 84 beats/min. Rhythm is regular. OR interval is prolonged at 216 msec. QRS cp interval is prolonged at 152 msec. QT interval is normal. T waves are Inverted in leads aVR, V2, V3. Interpreted by me. Reviewed by me. Administered Medications: 18:25 Drug: TNK FOR STROKE - Tenecteplase IV 0.25 mg/kg IV at per protocol once; MAX cp4 DOSE 25 mg, IVP over 5 seconds {Co-Signature: aa5 (Hortensia Serrano RN).} Route: IV; Rate: per protocol; Site: right antecubital; 21:23 Follow up: Response: No adverse reaction; Marked relief of symptoms; IV Status: rv Completed infusion 19:15 Drug: DuoNeb Nebulize (2.5 mg - 0.5 mg) 3 ml Nebulizer once Route: Nebulizer; rv 21:23 Follow up: Response: No adverse reaction rv 19:26 Drug: foLIC Acid IVPB 1 mg IVPB once Route: IVPB; Site: left forearm; jw7 21:23 Follow up: Response: No adverse reaction; IV Status: Completed infusion rv 19:26 Drug: Aspirin PO 81 mg PO once Route: PO; jw7 21:23 Follow up: Response: No adverse reaction rv 20:30 Drug: Furosemide IVP 40 mg IVP once; give over 2 minutes Route: IVP; Site: left forearm;jw7 21:23 Follow up: Response: No adverse reaction rv Disposition Summary: 04/15/23 18:53 Transfer Ordered Notes: Transfer Location: [facility] cp Reason: Higher level of care cp Condition: Stable cp Problem: new cp Symptoms: have improved cp Accepting Physician: Doctor(04/15/23 21:24) rv Diagnosis - Aphasia cp - Weakness - right arm and right leg cp - Paresthesia of skin - Right Arm and Right Leg cp Forms: - Medication Reconciliation Form cp - SBAR form cp NIH Stroke Scale - NIH Stroke Score Date: 04/15/2023 Time: 17:55 Total Score = 8 10. Dysarthria (speech clarity - read or repeat words) - 2(Severe) 11. Extinction and Inattention (visual/tactile/auditory/spatial/personal) - 0(No abnormality) 1a. Level of Consciousness (LOC) - 0(Alert) 1b. Level of Consciousness (LOC) (Month \T\ Age) - 0(Both) 1c. LOC Commands (Open \T\ Closes Eyes/Physical Biochemist) - 0(Both) 2. Best Gaze (Lateral Gaze Paresis) - 0(Normal) 3. Visual Field Loss - 0(No visual loss) 4. Facial Palsy - 2(Partial paralysis) 5a. Left Arm: Motor (10-second hold) - 0(No drift) 5b. Right Arm: Motor (10-second hold) - 1(Drift) 6a. Left Leg: Motor (5-second hold - always test supine) - 0(No drift) 6b. Right Leg: Motor (5-second hold - always test supine) - 0(No drift) 7. Limb Ataxia (finger/nose \T\ heel/campbell - test with eyes open) - 1(Present in one limb) 8. Sensory Loss (pinprick arms/legs/face) - 0(Normal) 9. Best Language: Aphasia (description/naming/reading) - 2(Severe aphasia) Initials: cp4 NIH Stroke Scale - NIH Stroke Score Date: 04/15/2023 Time: 18:05 Total Score = 9 10. Dysarthria (speech clarity - read or repeat words) - 0(Normal) 11. Extinction and Inattention (visual/tactile/auditory/spatial/personal) - 0(No abnormality) 1a. Level of Consciousness (LOC) - 0(Alert) 1b. Level of Consciousness (LOC) (Month \T\ Age) - 0(Both) 1c. LOC Commands (Open \T\ Closes Eyes/Physical Biochemist) - 0(Both) 2. Best Gaze (Lateral Gaze Paresis) - 0(Normal) 3. Visual Field Loss - 0(No visual loss) 4. Facial Palsy - 2(Partial paralysis) 5a. Left Arm: Motor (10-second hold) - 0(No drift) 5b. Right Arm: Motor (10-second hold) - 1(Drift) 6a. Left Leg: Motor (5-second hold - always test supine) - 0(No drift) 6b. Right Leg: Motor (5-second hold - always test supine) - 1(Drift) 7. Limb Ataxia (finger/nose \T\ heel/campbell - test with eyes open) - 2(Present in two limbs) 8. Sensory Loss (pinprick arms/legs/face) - 1(Mild to moderate loss) 9. Best Language: Aphasia (description/naming/reading) - 2(Severe aphasia) Initials: cp Signatures: Dispatcher [employer] EDMS Riley Anaya PA PA cp Baxter, Heather, RN RN Sabino Allen RN RN rv Isadora Stubbs RN RN jw7 Connor Kerns MD MD rt Potter, Christina cp4 Hortensia Serrano RN aa5 Corrections: (The following items were deleted from the chart) 20:18 19:10 Normal except: WBC 11.20; HGB 13.1; MCV 79.5; MCH 26.0; RDW 17.3; cp EOSINOPHIL % 5.1; EOSA 0.6. cp 21:24 18:53 Doctor cp rv
--- NOTE | 2023-04-15 18:54 | ER ---
Nurse's Notes [facility] Name: Doug Bonilla II Age: 27 yrs Sex: Male : 1995 Arrival Date: 04/15/2023 Time: 17:49 Bed 7 Private MD: Diagnosis: Aphasia;Weakness-right arm and right leg;Paresthesia of skin-Right Arm and Right Leg Presentation: 04/15 17:49 Chief complaint: EMS states: Toned out for possible stroke. Pt walked out door hb unassisted with steady gait and met EMS outside, having difficulty speaking, able to answer appropriately to yes/no questions, c/o right sided weakness and right facial numbness that started at 1300 today. VAN NEGATIVE. BP 170s/130s, HR 80s, BGL 110, RBB on 12 lead. Coronavirus screen: At this time, the client does not indicate any symptoms associated with coronavirus-19. Ebola Screen: No symptoms or risks identified at this time. Risk Assessment: Do you want to hurt yourself or someone else? Patient reports no desire to harm self or others. Onset of symptoms was April 15, 2023 at 13:00. 17:49 Method Of Arrival: EMS: [facility] hb 17:49 Acuity: UMBERTO 2 hb Historical: - Allergies: 18:14 No Known Allergies; hb - PMHx: 18:14 Brugada syndrome; Congestive heart failure; Myocardial infarction; hb - Immunization history:: Adult Immunizations up to date. - Social history:: Smoking status: Patient denies any tobacco usage or history of. Screenin:03 [facility] ED Fall Risk Assessment (Adult) History of falling in the last 3 months, cp4 including since admission No falls in past 3 months (0 pts) Confusion or Disorientation No (0 pts) Intoxicated or Sedated No (0 pts) Impaired Gait No (0 pts) Mobility Assist Device Used No (0 pt) Altered Elimination No (0 pt) Score/Fall Risk Level 0 - 2 = Low Risk Oriented to surroundings, Maintained a safe environment, Educated pt \T\ family on fall prevention, incl call for assistance when getting out of bed, Assessed \T\ reinforced patient's understanding of fall precautions, Hourly rounding (assess needs \T\ fall precautionary measures) done. Abuse screen: Denies threats or abuse. Nutritional screening: No deficits noted. Tuberculosis screening: No symptoms or risk factors identified. Assessment: 17:52 Reassessment: CODE STROKE CALLED, PT TO CT WITH FELICIA EM. hb 17:55 VAN Scoring: Arm Drift: Minor drift Visual Disturbance: No visual disturbance noted. cp4 Aphasia: Expressive aphasia noted. Provider notified of +VAN scoring. Neglect: No neglect noted. [place] Swallow Protocol 3 oz Water Swallow Challenge: Pt able to drink all water without stopping, coughing, choking or throat clearing: Yes Result: PASS. TNKase (Tenecteplase) Screening: Indications: Definite evidence of stroke, ischemic, embolic, or hypertensive: Yes. Treatment will start within 4.5 hours onset of symptoms: Yes. No evidence of intracranial hemorrhage or CT of head and no evidence of peripheral hemorrhage or recent CVA: Yes. Consent for thrombolytic therapy: Yes. Pain: Denies pain. Neuro: Lozano Agitation-Sedation Scale (RASS): 0 - Alert and Calm Level of Consciousness is awake, alert, obeys commands, Oriented to person, place, time, situation, [employer] are weak on right Weakness Speech with expressive aphasia noted, Facial droop on right, Pupils are PERRLA, Numbness in right side face. 19:03 Reassessment: Patient consented at 1824. [facility] 19:06 Reassessment: See stroke packet for vitals. cp4 Vital Signs: 18:19 Weight 168.74 kg (M); hb 18:55 BP 155 / 119; Pulse 82; Resp 17; Pulse Ox 99% on R/A; hb 19:15 BP 166 / 102; Pulse 81; Resp 18; Pulse Ox 99% ; as9 19:30 BP 168 / 101; Pulse 86; Resp 16; Pulse Ox 99% on R/A; as9 19:45 BP 171 / 103; Pulse 81; Resp 17; Pulse Ox 99% on R/A; as9 20:00 BP 175 / 100; Pulse 95; Resp 16; Pulse Ox 99% on R/A; as9 20:30 BP 171 / 103; Pulse 80; Resp 18; Pulse Ox 100% on R/A; as9 21:00 BP 157 / 106; Pulse 76; Resp 17; Temp 98; Pulse Ox 99% on R/A; as9 Jose L Coma Score: 21:00 Eye Response: spontaneous(4). Motor Response: obeys commands(6). Verbal Response: as9 oriented(5). Total: 15. NIH Stroke Scale Scores: 17:55 NIHSS Score: 8 cp4 18:05 NIHSS Score: 9 cp ED Course: 17:53 Patient arrived in ED. eb 17:55 Riley Anaya PA is PHCP. cp 17:55 Jose Alfredo Horn MD is Attending Physician. cp 18:00 CT Stroke Brain w/o Contrast In Process Unspecified. EDMS 18:14 Triage completed. hb 18:14 Arm band placed on. hb 18:17 Initial lab(s) drawn, by me, sent to lab. Inserted saline lock: 18 gauge in right aa5 antecubital area, using aseptic technique. Blood collected. 18:20 Inserted saline lock: 20 gauge in left forearm, using aseptic technique. aa5 18:23 Stroke CXR 1 View In Process Unspecified. EDMS 18:53 initiated transfer with zully hou at [facility]. transferred over to Stephanie Anaya to do Doc kmf to Doc. Told at 1911 to call back whem CT Angio comes back. 19:03 Bed in low position. Call light in reach. Side rails up X2. Provided Education on: cp4 stroke and TNK.. 19:03 No provider procedures requiring assistance completed. Inserted. cp4 19:11 CT Head Angio In Process Unspecified. EDMS 19:11 CT Neck Angio In Process Unspecified. EDMS 20:26 Pt accepted to [facility]. Pt will go to room 7 south 5th bed 16. Accepting Lois Betancourt kmf \T\ 2021. Number for nurse to nurse report, . Facesheet faxed [phone]. [facility] to transfer pt. 21:22 Patient transferred, IV remains in place. rv Administered Medications: 18:25 Drug: TNK FOR STROKE - Tenecteplase IV 0.25 mg/kg IV at per protocol once; MAX cp4 DOSE 25 mg, IVP over 5 seconds {Co-Signature: aa5 (Hortensia Serrano RN).} Route: IV; Rate: per protocol; Site: right antecubital; 21:23 Follow up: Response: No adverse reaction; Marked relief of symptoms; IV Status: rv Completed infusion 19:15 Drug: DuoNeb Nebulize (2.5 mg - 0.5 mg) 3 ml Nebulizer once Route: Nebulizer; rv 21:23 Follow up: Response: No adverse reaction rv 19:26 Drug: foLIC Acid IVPB 1 mg IVPB once Route: IVPB; Site: left forearm; jw7 21:23 Follow up: Response: No adverse reaction; IV Status: Completed infusion rv 19:26 Drug: Aspirin PO 81 mg PO once Route: PO; jw7 21:23 Follow up: Response: No adverse reaction rv 20:30 Drug: Furosemide IVP 40 mg IVP once; give over 2 minutes Route: IVP; Site: left forearm;jw7 21:23 Follow up: Response: No adverse reaction rv Medication: 19:03 VIS not applicable for this client. cp4 Outcome: 18:53 ER care complete, transfer ordered by . cp 21:22 Transferred by ground EMS to [facility], Transfer form completed. rv X-rays sent w/ patient. 21:22 Condition: stable 21:22 Discharge instructions given to patient, Instructed on the need for transfer, 21:24 Patient left the ED. rv NIH Stroke Scale - NIH Stroke Score Date: 04/15/2023 Time: 17:55 Total Score = 8 10. Dysarthria (speech clarity - read or repeat words) - 2(Severe) 11. Extinction and Inattention (visual/tactile/auditory/spatial/personal) - 0(No abnormality) 1a. Level of Consciousness (LOC) - 0(Alert) 1b. Level of Consciousness (LOC) (Month \T\ Age) - 0(Both) 1c. LOC Commands (Open \T\ Closes Eyes/Shelf Drier Operator) - 0(Both) 2. Best Gaze (Lateral Gaze Paresis) - 0(Normal) 3. Visual Field Loss - 0(No visual loss) 4. Facial Palsy - 2(Partial paralysis) 5a. Left Arm: Motor (10-second hold) - 0(No drift) 5b. Right Arm: Motor (10-second hold) - 1(Drift) 6a. Left Leg: Motor (5-second hold - always test supine) - 0(No drift) 6b. Right Leg: Motor (5-second hold - always test supine) - 0(No drift) 7. Limb Ataxia (finger/nose \T\ heel/campbell - test with eyes open) - 1(Present in one limb) 8. Sensory Loss (pinprick arms/legs/face) - 0(Normal) 9. Best Language: Aphasia (description/naming/reading) - 2(Severe aphasia) Initials: cp4 NIH Stroke Scale - NIH Stroke Score Date: 04/15/2023 Time: 18:05 Total Score = 9 10. Dysarthria (speech clarity - read or repeat words) - 0(Normal) 11. Extinction and Inattention (visual/tactile/auditory/spatial/personal) - 0(No abnormality) 1a. Level of Consciousness (LOC) - 0(Alert) 1b. Level of Consciousness (LOC) (Month \T\ Age) - 0(Both) 1c. LOC Commands (Open \T\ Closes Eyes/Shelf Drier Operator) - 0(Both) 2. Best Gaze (Lateral Gaze Paresis) - 0(Normal) 3. Visual Field Loss - 0(No visual loss) 4. Facial Palsy - 2(Partial paralysis) 5a. Left Arm: Motor (10-second hold) - 0(No drift) 5b. Right Arm: Motor (10-second hold) - 1(Drift) 6a. Left Leg: Motor (5-second hold - always test supine) - 0(No drift) 6b. Right Leg: Motor (5-second hold - always test supine) - 1(Drift) 7. Limb Ataxia (finger/nose \T\ heel/campbell - test with eyes open) - 2(Present in two limbs) 8. Sensory Loss (pinprick arms/legs/face) - 1(Mild to moderate loss) 9. Best Language: Aphasia (description/naming/reading) - 2(Severe aphasia) Initials: cp Signatures: Dispatcher [employer] EDPR Hortensia Serrano, MANAV RN aa5 Riley Anaya PA PA cp Felicia Rivera RN Viv Mao Ronaldo, RN RN rv Waits, Jodi, RN RN jw7 Potter, Christina cp4 Es [facility] Rasta Gray RN RN as9 Hortensia Serrano RN aa5 Corrections: (The following items were deleted from the chart) 18:36 18:17 Inserted saline lock: 20 gauge in right antecubital area, using aseptic aa5 technique. Blood collected. aa5 19:04 19:03 Reassessment: Patient consented at 1820. cp4 cp4
--- NOTE | 2023-04-15 20:02 | RAD REPORT ---
EXAM DESCRIPTION: CT - Neck Angio - 04/15/2023 7:09 pm CLINICAL HISTORY: right side weakness COMPARISON: No comparisons TECHNIQUE: Axial CT angiography images of the neck was performed with multiplanar and maximum intens ity projection reconstructions. Images performed following intravenous administration of 100mL Isovue 370. All CT scans are performed using dose optimization technique as appropriate and may include automated exposure control or mA/KV adjustment according to patient size. Quantification of carotid stenosis, if any, is performed according to NASCET criteria. FINDINGS: A left aortic arch is identified with normal three vessel configuration of the great vesse ls. Beam hardening artifact in the lower neck limits evaluation of segments of the proximal vertebral arteries and right common carotid artery. Allowing for this, significant flow abnormality is seen of the common carotid bilaterally. No significant stenosis is identified involving the cervical segments of both internal carotid arteri es. Normal flow is seen within both vertebral arteries. Layering small pleural effusions. IMPRESSION: No significant flow abnormality of the neck vessels is identified. Layering small pleural effusions noted. CAROTID STENOSIS REFERENCE USING NASCET CRITERIA: % ICA stenosis = (1 - narrowest ICA diameter/diameter of distal cervical ICA) x 100. Mild - <50% stenosis. Moderate - 50-69% stenosis. Severe - 70-94% stenosis. Near occlusion - 95-99% stenosis. Occluded - 100% stenosis.
--- NOTE | 2023-04-15 20:13 | RAD REPORT ---
EXAM DESCRIPTION: CT - Head angio - 04/15/2023 7:09 pm CLINICAL HISTORY: WEAKNESS COMPARISON: Ct Stroke Brain Wo Cont dated 04/15/2023 TECHNIQUE: Axial CT angiography images of the head was performed with multiplanar and maximum intens ity projection reconstructions. Images performed following intravenous administration of 100mL Isovue 370. All CT scans are performed using dose optimization technique as appropriate and may include automated exposure control or mA/KV adjustment according to patient size. FINDINGS: No evidence of large vessel occlusion. No evidence of aneurysm or dissection flap is detec shahid. No flow-limiting stenosis or vascular malformation identified. Antegrade flow is seen in the vertebral arteries. The vertebral arteries are codominant. The visualized dural venous sinuses are grossly patent. IMPRESSION: No evidence of large vessel occlusion or flow-limiting stenosis.
[2023-04-15 20:54] LABS: Platelet Estimate ADEQ
[2023-04-15 20:55] LABS: Anisocytosis 1+; Poikilocytosis 1+
[2023-04-15 20:56] LABS: Blood Morphology Comment NOTED (NOT SEEN)
[2023-04-15 21:56] VITALS: BP 157/106; TEMP 98; O2SAT 99
--- NOTE | 2023-04-17 14:33 | EKG ---
Test Date: 2023-04-15 Test Time: 18:30:48 Tool Grinder Set Up Operator Gear: SOURAV MEASUREMENT RESULTS: Intervals: Rate: 84 CT: 216 QRSD: 152 QT: 438 QTc: 517 [place]: P: 34 CT: 216 QRS: 127 T: 101 INTERPRETIVE STATEMENTS: Sinus rhythm with 1st degree AV block Right bundle branch block Anterolateral infarct, possibly acute Consider right ventricular involvement in acute inferior infarct Abnormal ECG Compared to ECG 01/21/2023 16:08:52 First degree AV block now present Myocardial infarct finding still present Electronically Signed On 04-17-23 14:28:25 SERVICE DESK DIRECTOR by Adrián Davila
== END ==
LOC: ER 17:49
DX: R47.01 Aphasia (principal); R53.1 Weakness; R20.2 Paresthesia of skin; R29.810 Facial weakness; R29.708 NIHSS score 8; Z11.52 Encounter for screening for COVID-19
CPT/HCPCS: 36415; 70450; 70496; 70498; 71045; 80048; 80076; 82947; 83735; 84484; 85025; 85610; 85730; 87635; 87804; 92977; 93005; 94640; 99285; J1940; J3101; J7613; J7644; Q9967

== ENCOUNTER 2023-05-23 19:37 | Inpatient (IN) | payer OTHER ==
--- NOTE | 2023-05-23 20:32 | RAD REPORT ---
EXAM DESCRIPTION: RAD - Chest Single View - 05/23/2023 8:26 pm CLINICAL HISTORY: CHEST PAIN Chest pain. COMPARISON: Chest Single View dated 04/15/2023; Chest Pa And Lat (2 Views) dated 01/23/2023; Chest Sin gle View dated 01/22/2023; Chest Single View dated 01/21/2023 FINDINGS: Portable technique limits examination quality. Mild pulmonary edema. The heart is prominent in size. Small moderate right pleural effusion. IMPRESSION: Moderate CHF pattern.
[2023-05-23] MEDS ORDERED: HYDRALAZINE HCL 25 MG TABLET ONE (21:35)
[2023-05-23] MEDS ORDERED: FUROSEMIDE 40 MG/4 ML VIAL ONE (21:35)
[2023-05-23 21:38] LABS: Absolute Basophils 0.1 K/uL (0-0.5); Absolute Lymphocytes (CBC) 1.7 K/uL (0.7-4.9); Absolute Monocytes 1.2 K/uL (0.1-1.3); Absolute Neutrophil 8.5 K/uL (1.8-8.0); Basophils % 0.9 % (0-1.3); Eosinophils % 0.3 % (0-4.4); Hematocrit 38.8 % (39.6-49.0); Hemoglobin 12.3 g/dL (13.6-17.9); Lymphocytes % 14.4 % (15.3-44.8); MCHC 31.7 g/dL (32.0-36.0); MCV 81.9 fL (80-100); MPV 6.8 fL (7.6-11.3); Monocytes % 10.3 % (3.3-12.3); Neutrophils % 74.1 % (41.7-73.7); Nucleated Red Blood Cells % 0.1 % (0-0); Platelets 394 thou/uL (152-406); RBC Red Blood Cell Count 4.74 M/uL (4.33-5.43); Red Cell Distribution Width 18.8 % (12.1-15.2)
[2023-05-23 21:45] LABS: PT Prothrombin Time 18.3 SECONDS (9.5-12.5); Protime INR 1.69
[2023-05-23 22:00] LABS: Albumin 2.9 g/dL (3.4-5.0); Albumin/Globulin Ratio 0.7 (1.1-1.8); Anion Gap 9.6 mEq/L (5.0-15.0); Bilirubin Direct 0.5 mg/dL (0-0.2); Bilirubin Indirect, Calculated 0.9 mg/dL (0.2-0.8); Bilirubin Total 1.4 mg/dL (0.2-1.0); Globulin 4.2 g/dL (2.3-3.5); Potassium 4.6 mEq/L (3.5-5.1); Protein, Total 7.1 g/dL (6.4-8.2)
[2023-05-23 22:13] LABS: Troponin High Sensitivity 158.4 pg/mL (<58.9)
--- NOTE | 2023-05-23 22:26 | EDPHYS ---
Physician Documentation [facility] Name: Doug Bonilla II Age: 27 yrs Sex: Male : 1995 Arrival Date: 05/23/2023 Time: 19:37 Bed 18 Private MD: ED Physician Santiago Pardo HPI: 05/22 20:02 This 27 yrs old Other Male presents to ER via Ambulatory with complaints of Shortness sp4 Of Breath, Swelling of Lower Extremity. 20:03 Allergies: No Known Allergies; PMHx: Brugada syndrome; Congestive heart failure; sp4 Myocardial infarction. 20:20 Patient presents with 2 weeks of worsening dyspnea on exertion associated with sp4 worsening dyspnea this morning with coughing up bloody mucus. Patient states he ran out of his Lasix several months ago. Patient has history of prior coronary artery disease and congestive heart failure.. Patient's medications include furosemide 40 mg p.o. daily, lisinopril 5 mg p.o. daily, isosorbide 30 mg p.o. daily, Coreg 12.5 mg p.o. twice daily, hydralazine 25 mg every 8 hours. Patient states he has been out of his Lasix and isosorbide for some time. 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 . Historical: - Allergies: 19:52 No Known Allergies; nj1 - PMHx: 19:52 Myocardial infarction; Congestive heart failure; Brugada syndrome; nj1 - PSHx: 19:52 None; nj1 - Immunization history:: Client reports receiving the 2nd dose of the Covid vaccine. - Infectious Disease History:: Denies. - Social history:: Smoking status: Patient reports the use of cigarette tobacco products, smokes one-half pack cigarettes per day. - Family history:: not pertinent. ROS: 20:28 Constitutional: Negative for fever, chills, and weight loss, Cardiovascular: Positive sp4 for dyspnea on exertion and shortness of breath 20:28 All other systems are negative, Exam: 20:28 Constitutional: This is a well developed, well nourished patient who is awake, alert, sp4 and in no acute distress. Morbidly overweight male. Head/Face: Normocephalic, atraumatic. Eyes: Pupils equal round and reactive to light, extra-ocular motions intact. Lids and lashes normal. Conjunctiva and sclera are not injected. Cornea within normal limits. Periorbital areas with no swelling, redness, or edema. ENT: Nares patent. No nasal discharge, no septal abnormalities noted. Tympanic membranes are normal and external auditory canals are clear. Oropharynx with no redness, swelling, or masses, exudates, or evidence of obstruction, uvula midline. Mucous membranes moist. Neck: Trachea midline, no thyromegaly or masses palpated, and no cervical lymphadenopathy. Supple, full range of motion without nuchal rigidity, or vertebral point tenderness. Chest/axilla: Normal chest wall appearance and motion. Nontender with no deformity. No lesions are appreciated. Cardiovascular: Regular rate and rhythm with a normal S1 and S2. No gallops, murmurs, or rubs. Normal PMI, no JVD. No pulse deficits. Respiratory: Lungs have equal breath sounds bilaterally, clear to auscultation and percussion. No rales, rhonchi or wheezes noted. No increased work of breathing, no retractions or nasal flaring. Abdomen/GI: Soft, with normal bowel sounds. No distension or tympany. No guarding or rebound. No evidence of tenderness throughout. Back: No spinal tenderness. No costovertebral tenderness. Skin: Warm, dry with normal turgor. Normal color with no rashes, no lesions, and no evidence of cellulitis. MS/ Extremity: Pulses equal, no cyanosis. Neurovascular intact. Full, normal range of motion. Neuro: Awake and alert, GCS 15, oriented to person, place, time, and situation. Cranial nerves II-XII grossly intact. Motor strength 5/5 in all extremities. Sensory grossly intact. Psych: Awake, alert, with orientation to person, place and time. Behavior, mood, and affect are within normal limits 21:19 ECG was reviewed by the Attending Physician. EKG time 2108, normal sinus rhythm at a sp4 rate of 91. Right bundle branch block. Otherwise unremarkable Vital Signs: 19:50 Pulse 95; Resp 20; Temp 97(TE); Pulse Ox 99% ; Weight 181.44 kg; Height 6 ft. 2 in. ; nj1 21:00 BP 161 / 117; Pulse 90; Pulse Ox 98% on R/A; Pain 0/10; tm6 21:46 BP 164 / 126; Pulse 94; Resp 22; Pulse Ox 98% on R/A; Pain 0/10; tm6 04/03 01:01 BP 163 / 115; Pulse 92; Pulse Ox 95% on R/A; Pain 0/10; tm6 /02 19:50 Body Mass Index 51.36 (181.44 kg, 187.96 cm) nj1 21:00 Pain Scale: Adult tm6 21:46 Pain Scale: Adult tm6 05/23 01:01 Pain Scale: Adult tm6 Jose L Coma Score: 05/22 21:19 Eye Response: spontaneous(4). Motor Response: obeys commands(6). Verbal Response: sp4 oriented(5). Total: 15. MDM: 20:19 Patient medically screened. sp4 22:22 ED course: EXAM DESCRIPTION: RAD - Chest Single View - 05/23/2023 8:26 pm CLINICAL sp4 HISTORY: CHEST PAIN Chest pain. COMPARISON: Chest Single View dated 04/15/2023; Chest Pa And Lat (2 Views) dated 01/23/2023; Chest Single View dated 01/22/2023; Chest Single View dated 01/21/2023 FINDINGS: Portable technique limits examination quality. Mild pulmonary edema. The heart is prominent in size. Small moderate right pleural effusion. IMPRESSION: Moderate CHF pattern. . 22:25 Differential diagnosis: Anxiety Reaction asthma, Bronchitis CHF exacerbation, Chronic sp4 Obstructive Pulmonary Disease Myocardial Infarction. Data reviewed: vital signs, nurses notes, lab test result(s), EKG, radiologic studies, CT scan, plain films. ED course: EXAM DESCRIPTION: RAD - Chest Single View - 05/23/2023 8:26 pm CLINICAL HISTORY: CHEST PAIN Chest pain. COMPARISON: Chest Single View dated 04/15/2023; Chest Pa And Lat (2 Views) dated 01/23/2023; Chest Single View dated 01/22/2023; Chest Single View dated 01/21/2023 FINDINGS: Portable technique limits examination quality. Mild pulmonary edema. The heart is prominent in size. Small moderate right pleural effusion. IMPRESSION: Moderate CHF pattern. . 23:56 ED course: EXAM: CTAngiography Chest With Intravenous Contrast CLINICAL HISTORY: The sp4 patient is 27 years old and is Male; CHEST PAIN TECHNIQUE: Axial computed tomographic angiography images of the chest with intravenous contrast. Sagittal and coronal reformatted images were created and reviewed. This CT exam was performed using one or more of the following dose reduction techniques: automated exposure control, adjustment of the mA and/or kV according to patient size, and/or use of iterative reconstruction technique. MIP reconstructed images were created and reviewed. COMPARISON: CTA Chest dated January 21 2023 FINDINGS: PULMONARYARTERIES: There are no obvious filling defects identified within the pulmonary arteries to suggest pulmonary embolism. AORTA: No acute findings. No thoracic aortic aneurysm. LUNGS: Rounded groundglass opacity within the right upper lobe is present. Areas of atelectasis and scarring within the right middle lobe and bilateral lower lobes are noted, right greater than left. PLEURAL SPACE: Small bilateral pleural effusions are present, right greater than left. No pneumothorax. HEART: The heart is enlarged. No significant pericardial effusion. No evidence of RV dysfunction. BONES/JOINTS: No acute fracture. No dislocation. SOFT TISSUES: Unremarkable. LYMPH NODES: Unremarkable. No enlarged lymph nodes. IMPRESSION: 1. Findings suggest right upper lobe pneumonia with scattered areas of atelectasis and associated pleural effusions, right greater than left. 2. No evidence of pulmonary embolism.. 05/22 20:03 Order name: Basic Metabolic Panel; Complete Time: 22:19 sp4 05/22 20:03 Order name: CBC with Diff; Complete Time: 22:14 sp4 05/22 20:03 Order name: LFT's; Complete Time: 22:19 sp4 05/22 20:03 Order name: Magnesium; Complete Time: 22:19 sp4 05/22 20:03 Order name: NT PRO-BNP; Complete Time: 22:19 sp4 05/22 20:03 Order name: PT-INR; Complete Time: 22:14 sp4 05/22 20:03 Order name: Troponin HS; Complete Time: 22:19 sp4 05/22 22:52 Order name: Urine Drug Screen EDMS 05/22 22:56 Order name: Urinalysis w/ reflexes EDMS 05/22 22:56 Order name: CBC with Automated Diff EDMS 05/22 22:56 Order name: CBC with Automated Diff EDMS 05/22 22:56 Order name: Comprehensive Metabolic Panel EDMS 05/22 22:56 Order name: Comprehensive Metabolic Panel EDMS 05/22 22:56 Order name: Troponin High Sensitivity EDMS 05/22 22:56 Order name: Troponin High Sensitivity; Complete Time: 00:21 EDMS 05/22 22:56 Order name: Troponin High Sensitivity EDMS 05/22 22:56 Order name: Troponin High Sensitivity EDWV 05/22 20:03 Order name: XRAY Chest (1 view); Complete Time: 21:18 sp4 05/22 21:21 Order name: CT Chest For PE Angio sp4 05/22 22:58 Order name: Echo with Doppler EDWV 05/22 22:56 Order name: CONS Physician Consult EDWV 05/22 20:03 Order name: Cardiac monitoring; Complete Time: 20:05 sp4 05/22 20:03 Order name: EKG - Nurse/Tech; Complete Time: 21:32 sp4 05/22 20:03 Order name: IV Saline Lock; Complete Time: 21:32 sp4 05/22 20:03 Order name: Labs collected and sent; Complete Time: 21:32 sp4 05/22 20:03 Order name: O2 Per Protocol; Complete Time: 20:05 sp4 05/22 20:03 Order name: O2 Sat Monitoring; Complete Time: 20:05 sp4 EC:19 Rate is 91 beats/min. Rhythm is regular, Normal Sinus Rhythm. QRS [place] is Normal. NE sp4 interval is normal. QRS interval is prolonged. QT interval is normal. No Q waves. T waves are Normal. Clinical impression: No evidence of ischemia. Interpreted by me. Reviewed by me. Administered Medications: 21:44 Drug: Furosemide IVP 40 mg IVP once; give over 2 minutes Route: IVP; Site: right upper tm6 arm; 21:48 Drug: HydrALAZINE PO 25 mg PO once Route: PO; tm6 23:28 Drug: Aspirin PO Chewable Tablet 324 mg PO once; 81 mg tablets x 4 Route: PO; tm6 23:29 Drug: Enoxaparin Sub-Q 180 mg Sub-Q once Route: Sub-Q; Site: abdomen; tm6 Disposition Summary: 05/23/23 22:25 Hospitalization Ordered Notes: Hospitalization Status: Inpatient Admission sp4 Provider: Yamil Gutierrez Condition: Stable sp4 Problem: new sp4 Symptoms: have improved sp4 Bed/Room Type: Standard sp4 Location: Telemetry/MedSurg (Inpatient)(05/24/23 00:01) rv1 Room Assignment: 411(05/24/23 00:01) rv1 Diagnosis - Acute diastolic (congestive) heart failure sp4 - NSTEMI, acute CHF exacerbation sp4 Forms: - Medication Reconciliation Form sp4 - SBAR form sp4 - Leadership Thank You Letter sp4 Signatures: Dispatcher [employer] EDMS Jonathan Florina rv1 Santiago Pardo MD MD sp4 Makenna Brock RN RN nj1 Beverley Melendez RN RN tm6 Corrections: (The following items were deleted from the chart) 20:04 20:04 Chest Single View+[email or web address].[email or web address] ordered. EDWV EDWV 23:02 22:25 Telemetry/MedSurg (Inpatient) sp4 rv1 23:02 22:25 sp4 rv1 04 00:01 04 23:02 [facility] ER HOLD rv1 rv1 05/23 00:01 04 23:02 ERHOLD- rv1 rv1
--- NOTE | 2023-05-23 22:26 | ER ---
Nurse's Notes [facility] Name: Doug Bonilla II Age: 27 yrs Sex: Male : 1995 Arrival Date: 05/23/2023 Time: 19:37 Bed 18 Private MD: Diagnosis: Acute diastolic (congestive) heart failure;NSTEMI, acute CHF exacerbation Presentation: 05/22 19:50 Chief complaint: Patient states: Shortness of breath for 2 weeks, getting worse, nj1 started coughing up bloody mucus today. Has noted lower leg swelling 3 days ago. Coronavirus screen: Vaccine status: Patient reports receiving the 2nd dose of the covid vaccine. Ebola Screen: Patient denies travel to an Ebola-affected area in the 21 days before illness onset. Initial Sepsis Screen: Does the patient meet any 2 criteria? HR > 90 bpm. No. Patient's initial sepsis screen is negative. Does the patient have a suspected source of infection? No. Patient's initial sepsis screen is negative. Risk Assessment: Do you want to hurt yourself or someone else? Patient reports no desire to harm self or others. Onset of symptoms was April 2023. 19:50 Method Of Arrival: Ambulatory [facility] 19:50 Acuity: UMBERTO 2 nj1 Triage Assessment: 19:54 General: Appears in no apparent distress. uncomfortable, Behavior is calm, cooperative, nj1 appropriate for age. Pain: Complains of pain in chest Pain currently is 5 out of 10 on a pain scale. Respiratory: Reports shortness of breath at rest cough that is productive. 05/23 01:02 Respiratory: Onset: The symptoms/episode began/occurred at an unknown time. the patient tm6 has mild shortness of breath. Historical: - Allergies: 05/22 19:52 No Known Allergies; nj1 - PMHx: 19:52 Myocardial infarction; Congestive heart failure; Brugada syndrome; nj1 - PSHx: 19:52 None; nj1 - Immunization history:: Client reports receiving the 2nd dose of the Covid vaccine. - Infectious Disease History:: Denies. - Social history:: Smoking status: Patient reports the use of cigarette tobacco products, smokes one-half pack cigarettes per day. - Family history:: not pertinent. Screenin:05 [facility] ED Fall Risk Assessment (Adult) History of falling in the last 3 months, tm6 including since admission No falls in past 3 months (0 pts). [facility] ED Fall Risk Assessment (Adult) Confusion or Disorientation No (0 pts) Intoxicated or Sedated No (0 pts) Impaired Gait No (0 pts) Mobility Assist Device Used No (0 pt) Altered Elimination No (0 pt) Score/Fall Risk Level 0 - 2 = Low Risk Oriented to surroundings, Maintained a safe environment. Abuse screen: Denies threats or abuse. Denies injuries from another. Nutritional screening: No deficits noted. Tuberculosis screening: No symptoms or risk factors identified. Assessment: 20:05 General: Appears in no apparent distress. Behavior is calm, cooperative. Pain: Denies tm6 pain. Neuro: Level of Consciousness is awake, alert, obeys commands, Oriented to person, place, time, situation. Cardiovascular: Reports shortness of breath, Patient's skin is warm and dry. Edema is 2+ to left midcalf, left ankle, right midcalf and right ankle. Respiratory: Reports shortness of breath Airway is patent Respiratory effort is even, labored. GI: No signs and/or symptoms were reported involving the gastrointestinal system. Abdomen is obese. : No signs and/or symptoms were reported regarding the genitourinary system. EENT: No signs and/or symptoms were reported regarding the EENT system. Derm: No signs and/or symptoms reported regarding the dermatologic system. Musculoskeletal: No signs and/or symptoms reported regarding the musculoskeletal system. 21:00 Reassessment: Patient and/or family updated on plan of care and expected duration. Pain tm6 level reassessed. Patient is alert, oriented x 3, equal unlabored respirations, skin warm/dry/pink. 21:46 Reassessment: Patient and/or family updated on plan of care and expected duration. Pain tm6 level reassessed. Patient is alert, oriented x 3, equal unlabored respirations, skin warm/dry/pink. 21:48 Cardiovascular: Rhythm is regular. Respiratory: Breath sounds are diminished tm6 bilaterally. 05/23 01:01 Reassessment: Patient and/or family updated on plan of care and expected duration. Pain tm6 level reassessed. Patient is alert, oriented x 3, equal unlabored respirations, skin warm/dry/pink. Vital Signs: 05/22 19:50 Pulse 95; Resp 20; Temp 97(TE); Pulse Ox 99% ; Weight 181.44 kg; Height 6 ft. 2 in. ; nj1 21:00 BP 161 / 117; Pulse 90; Pulse Ox 98% on R/A; Pain 0/10; tm6 21:46 BP 164 / 126; Pulse 94; Resp 22; Pulse Ox 98% on R/A; Pain 0/10; tm6 05/23 01:01 BP 163 / 115; Pulse 92; Pulse Ox 95% on R/A; Pain 0/10; tm6 05/22 19:50 Body Mass Index 51.36 (181.44 kg, 187.96 cm) nj1 21:00 Pain Scale: Adult tm6 21:46 Pain Scale: Adult tm6 05/23 01:01 Pain Scale: Adult tm6 Adkins Coma Score: 05/22 21:19 Eye Response: spontaneous(4). Motor Response: obeys commands(6). Verbal Response: sp4 oriented(5). Total: 15. ED Course: 19:44 Patient arrived in ED. jj6 19:52 Triage completed. nj1 19:54 Arm band placed on right wrist. nj1 19:59 Beverley Melendez, RN is Primary Nurse. tm6 20:02 Santiago Pardo MD is Attending Physician. sp4 20:05 Patient has correct armband on for positive identification. Placed in gown. Bed in low tm6 position. Call light in reach. Side rails up X2. Provided Education on: plan of care. Client placed on continuous cardiac and pulse oximetry monitoring. NIBP monitoring applied. telemetry monitor on. Pulse ox on. NIBP on. Door closed. Noise minimized. 20:20 Missed attempt(s): 22 gauge in right antecubital area. tm6 20:28 XRAY Chest (1 view) In Process Unspecified. EDMS 21:00 Missed attempt(s): 22 gauge in left antecubital area. tm6 21:00 EKG done, by ED staff, reviewed by Santiago Pardo MD. tm6 21:28 Inserted saline lock: 20 gauge in right upper arm, using aseptic technique. Blood jj7 collected. Ultrasound guided. Catheter tip well visualized within vasculature during placement. 21:32 Basic Metabolic Panel Sent. tm6 21:32 CBC with Diff Sent. tm6 21:32 LFT's Sent. tm6 21:32 Magnesium Sent. tm6 21:32 NT PRO-BNP Sent. tm6 21:32 PT-INR Sent. tm6 21:32 Troponin HS Sent. tm6 22:14 Notified ED physician of a critical lab result(s). Troponin 168.4. pf1 22:24 Yamil Gutierrez MD is Hospitalizing Provider. sp4 22:47 CT Chest For PE Angio In Process Unspecified. EDRI 05/23 01:01 No provider procedures requiring assistance completed. Patient admitted, IV remains in tm6 place. Administered Medications: 05/22 21:44 Drug: Furosemide IVP 40 mg IVP once; give over 2 minutes Route: IVP; Site: right upper tm6 arm; 21:48 Drug: HydrALAZINE PO 25 mg PO once Route: PO; tm6 23:28 Drug: Aspirin PO Chewable Tablet 324 mg PO once; 81 mg tablets x 4 Route: PO; tm6 23:29 Drug: Enoxaparin Sub-Q 180 mg Sub-Q once Route: Sub-Q; Site: abdomen; tm6 Medication: 20:05 VIS not applicable for this client. tm6 Outcome: 22:25 Decision to Hospitalize by Provider. sp4 05/23 01:01 Admitted to Med/surg accompanied by tech, via wheelchair, room 411, with chart, tm6 Condition: stable Instructed on the need for admit, 01:02 Patient left the ED. tm6 Signatures: Dispatcher [employer] EDRI Sandi Sinclair jj6 Dontrell Billings RN RN jj7 Vielka Kelly RN RN pf1 Santiago Pardo MD MD sp4 Makenna Brock RN RN nj1 Beverley Melendez RN RN tm6
[2023-05-23] MEDS ORDERED: IPRATROPIUM BROM 0.5MG/2.5ML NEB PRN (22:51)
[2023-05-23] MEDS ORDERED: ALBUTEROL 2.5 MG/3 ML NEB SOL NEB PRN (22:51)
[2023-05-23] MEDS ORDERED: ONDANSETRON 4 MG/2 ML VIAL IV PRN (22:51)
[2023-05-23] MEDS ORDERED: ACETAMINOPHEN 500 MG TAB PO PRN (22:51)
--- NOTE | 2023-05-23 23:08 | P.HP ---
Certification for Inpatient Patient admitted to: Inpatient With expected LOS: >2 Midnights Practitioner: I am a practitioner with admitting privileges, knowledge of patient current condition, hospital course, and medical plan of care. Services: Services provided to patient in accordance with Admission requirements found in Title 42 Section 412.3 of the Code of Federal Regulations Patient History Date of Service: 05/24/23 Reason for admission: CHF History of Present Illness: 27 yrs old Male with past medical history of Brugada syndrome, congestive heart failure, CAD, history of substance abuse, who was brought to ER with shortness of breath and swelling of bilateral lower extremity which has been slightly worsening over the last 2 weeks. Patient denies any chest pain. Patient has not followed by any [employer] director combat plans officer as outpatient in the recent few months. Associated with cough. With some bloody mucus. No fever or chills. No nausea vomiting or diarrhea. Patient having worsening of symptoms in the last 2 weeks and has been progressively worsening even with minimal exertion he used to get short of breath. Patient was assessed in the ER and was admitted for further management of CHF exacerbation and NSTEMI and right upper lobe pneumonia . . Allergies No Known Allergies Allergy (Unverified 01/22/23 08:24) Home medications list reviewed: Yes Home Medications: Furosemide [Lasix*] 40 mg PO BID 01/22/23 Hydralazine [Apresoline*] 25 mg PO BID 01/22/23 Amox/Clavulanate [Augmentin 875-125 Tab*] 875 mg PO BID 3 Days #6 tab 01/25/23 Aspirin 81 mg PO DAILY 60 Days #60 tab.chew 01/25/23 Lisinopril [Zestril] 10 mg PO DAILY 60 Days #60 01/25/23 carvediloL [Coreg*] 12.5 mg PO BID 6AM 6PM 30 Days #60 tab 01/25/23 - Past Medical/Surgical History Past Medical History: Reviewed- Non-Contributory -: [place] -: HTN -: HLD -: Obesity Past Surgical History: Reviewed- Non-Contributory - Family History Family History: Reviewed- Non-Contributory - Family History Mother -: Heart disease - Social History Smoking Status: Current some day smoker Alcohol use: No CD- Drugs: No Caffeine use: Yes Review of Systems 10-point ROS is otherwise unremarkable Physical Examination - Vital Signs Temperature: 98.4 F Blood Pressure: 138/78 Pulse: 78 Respirations: 18 Pulse Ox (%): 98 - Physical Exam General: Alert, In no apparent distress, Oriented x3, Mild distress, Obese HEENT: Atraumatic, Normocephalic Neck: Supple, No Thyromegaly, No LAD Respiratory: Diminished, Crackles/rales Cardiovascular: Regular rate/rhythm, Normal S1 S2, No murmurs, Edema Capillary refill: <2 Seconds Gastrointestinal: Soft and benign, W/out hepatosplenomegaly, No tenderness, No masses Musculoskeletal: No clubbing, Swelling Integumentary: No rashes, No breakdown Neurological: Normal speech, Normal strength at 5/5 x4 extr, Normal reflexes 2+, Normal affect Lymphatics: No axilla or inguinal lymphadenopathy - Studies Laboratory Data (last 24 hrs) 05/23/23 05/23/23 05/23/23 21:25 21:25 21:25 WBC 11.50 H Hgb 12.3 L Hct 38.8 L Plt Count 394 PT 18.3 H INR 1.69 Sodium 133 L Potassium 4.6 BUN 17 Creatinine 1.39 H Glucose 89 Magnesium 2.0 Total Bilirubin 1.4 H AST 112 H ALT 113 H Alkaline Phosphatase 62 Imagings Data: FINDINGS: Portable technique limits examination quality. Mild pulmonary edema. The heart is prominent in size. Small moderate right pleural effusion. IMPRESSION: Moderate CHF pattern. Assessment and Plan - Problems (Diagnosis) (1) NSTEMI (non-ST elevated myocardial infarction) Current Visit: Yes Status: Acute Plan: NSTEMI possibly type II Will trend cardiac enzymes Will monitor telemetry Started on aspirin and statin Patient denies any chest pain Will get an echocardiogram Cardiology consult (2) CHF exacerbation Current Visit: Yes Status: Acute Plan: Acute on chronic CHF possibly systolic/diastolic Monitor closely on telemetry Started on aggressive diuresis X-ray findings consistent with CHF Oxygen supplementation Will try to wean down oxygen requirement Continue home medications Titrate as needed Will obtain an echocardiogram Cardiology consult (3) Pneumonia Current Visit: Yes Status: Acute Plan: Continue antibiotics Monitor closely Will get a repeat x-ray in a.m. Hyponatremia Monitor electrolytes and replace accordingly Leukocytosis noted Monitor CBC in a.m. (4) Hypertension Current Visit: Yes Status: Chronic Plan: Continue home medications (5) Morbid obesity Current Visit: No Status: Chronic Plan: Advised Life style modifications Discharge Plan: Home Plan to discharge in: Greater than 2 days - Advance Directives Does patient have a Living Will: No Does patient have a Durable POA for Healthcare: No - Code Status/Comfort Care Code Status: Full Code Time Spent Managing Pts Care (In Minutes): 58
[2023-05-23] MEDS ORDERED: ENOXAPARIN 80 MG/0.8 ML SQ ONE (23:15)
[2023-05-23] MEDS ORDERED: ENOXAPARIN 100 MG/ML SYR SQ ONE (23:15)
[2023-05-23] MEDS ORDERED: ASPIRIN 81 MG CHEWABLE TABLET ONE (23:15)
[2023-05-24] MEDS: CEFTRIAXONE 1,000 MG in NA CHLORIDE 0.9% 50 ML IVPB SCH (02:10)
[2023-05-24] MEDS: FUROSEMIDE 40 MG/4 ML VIAL IV SCH (02:11)
[2023-05-24 03:24] LABS: Barbiturates NEGATIVE (NEGATIVE); Benzodiazepines NEGATIVE (NEGATIVE); Cocaine NEGATIVE (NEGATIVE); METHAMPHETAM NEGATIVE (NEGATIVE); Methadone NEGATIVE (NEGATIVE); Opiates NEGATIVE (NEGATIVE); Phencyclidine NEGATIVE (NEGATIVE); THC Cannibis NEGATIVE (NEGATIVE)
[2023-05-24 03:26] LABS: Specific Gravity > 1.030 (1.005-1.030); Sqamous Epithelial None Seen /HPF (None Seen); Urine Bacteria None Seen /HPF (<20); Urine Bilirubin NEGATIVE (Negative); Urine Blood Trace (Negative); Urine Clarity Clear (Clear); Urine Color Light-Yellow (Yellow); Urine Culture Reflex Order NOT NEEDED; Urine Glucose NEGATIVE (Negative); Urine Ketones NEGATIVE (Negative); Urine Microscopic Reflex YN ORDER UMIC; Urine Mucus Slight /HPF (None Seen); Urine Nitrite NEGATIVE (Negative); Urine Protein 1+ (Negative); Urine Urobilinogen 1+ (Normal); Urine WBC <5 /HPF (<5)
[2023-05-24 05:29] LABS: Absolute Basophils 0.1 K/uL (0-0.5); Absolute Eosinophils 0.1 K/uL (0-0.5); Absolute Lymphocytes (CBC) 2.4 K/uL (0.7-4.9); Absolute Monocytes 1.7 K/uL (0.1-1.3); Absolute Neutrophil 8.9 K/uL (1.8-8.0); Basophils % 0.6 % (0-1.3); Eosinophils % 0.4 % (0-4.4); Hematocrit 39.6 % (39.6-49.0); Hemoglobin 12.7 g/dL (13.6-17.9); Lymphocytes % 17.9 % (15.3-44.8); MCH 26.1 pg (27.0-35.0); MCV 81.7 fL (80-100); Monocytes % 13.2 % (3.3-12.3); Neutrophils % 67.9 % (41.7-73.7); Nucleated Red Blood Cells % 0.1 % (0-0); Platelets 362 thou/uL (152-406); RBC Red Blood Cell Count 4.85 M/uL (4.33-5.43); Red Cell Distribution Width 18.7 % (12.1-15.2)
[2023-05-24] MEDS: carvediloL 6.25 MG TAB PO SCH (05:30)
[2023-05-24 05:48] LABS: Albumin/Globulin Ratio 0.7 (1.1-1.8); Anion Gap 8.8 mEq/L (5.0-15.0); Bilirubin Total 1.4 mg/dL (0.2-1.0); Globulin 4.1 g/dL (2.3-3.5); Potassium 3.8 mEq/L (3.5-5.1); Protein, Total 7.1 g/dL (6.4-8.2)
[2023-05-24] MEDS ORDERED: carvediloL 12.5 MG TAB PO SCH (06:00)
[2023-05-24] MEDS: ASPIRIN 81 MG CHEWABLE TABLET PO SCH (09:09)
[2023-05-24] MEDS: HYDRALAZINE HCL 25 MG TABLET PO SCH (09:09)
[2023-05-24] MEDS: lisinopriL 10 MG TAB PO SCH (09:09)
[2023-05-24] MEDS: AZITHROMYCIN IV 500 MG in NA CHLORIDE 0.9% 250 ML IVPB SCH (09:10)
[2023-05-24] MEDS: ENOXAPARIN 40 MG/0.4 ML SQ SCH (09:10)
[2023-05-24] MEDS: POTASSIUM CL SA 10 MEQ TAB PO ONE (09:10)
[2023-05-24] MEDS ORDERED: PNEUMOCOCCAL VACCINE 0.5 ML IMVAC ONE (12:00)
[2023-05-24] MEDS ORDERED: INFLUENZA VACCINE (for 6+ mo) 0.5 ML DOSE IMVAC ONE (12:00)
--- NOTE | 2023-05-24 13:55 | RAD REPORT ---
EXAM DESCRIPTION: CT Angiography Chest With Intravenous Contrast CLINICAL HISTORY: The patient is 27 years old and is Male; CHEST PAIN TECHNIQUE: Axial computed tomographic angiography images of the chest with intravenous contrast. S agittal and coronal reformatted images were created and reviewed. This CT exam was performed using one or more of the following dose reduction techniques: automated exposure control, adjustment of t he mA and/or kV according to patient size, and/or use of iterative reconstruction technique. MIP reconstructed images were created and reviewed. COMPARISON: CTA Chest dated January 21 2023 FINDINGS: PULMONARY ARTERIES: There are no obvious filling defects identified within the pulmonary arteries to suggest pulmonary embolism. AORTA: No acute findings. No thoracic aortic aneurysm. LUNGS: Rounded groundglass opacity within the right upper lobe is present. Areas of atelectasis a nd scarring within the right middle lobe and bilateral lower lobes are noted, right greater than left . PLEURAL SPACE: Small bilateral pleural effusions are present, right greater than left. No pneum othorax. HEART: The heart is enlarged. No significant pericardial effusion. No evidence of RV dysfunct ion. BONES/JOINTS: No acute fracture. No dislocation. SOFT TISSUES: Unremarkable. LYMPH NODES: Unremarkable. No enlarged lymph nodes. IMPRESSION: 1. Findings suggest right upper lobe pneumonia with scattered areas of atelectasis and associated pleural effusions, right greater than left. 2. No evidence of pulmonary embolism. Electronically signed by: Shabnam Romero MD 05/23/2023 11:15 PM CDT Due to temporary technical issues with the PACS/Fluency reporting system, reports are being signed by the in house radiologist without review as a courtesy to ensure prompt reporting. The interpreting r adiologist is fully responsible for the content of the report.
--- NOTE | 2023-05-24 14:58 | P.PN ---
Subjective Date of Service: 05/24/23 Chief Complaint: CHF Admitted for CHF, orts running out of Lasix, no reported chest pain, reports lower extremity edema - Physical Exam General: Alert, In no apparent distress, Oriented x3, Obese HEENT: Atraumatic, Normocephalic Neck: Supple, No Thyromegaly, No LAD Respiratory: Diminished, Crackles/rales Cardiovascular: Regular rate/rhythm, Normal S1 S2, No murmurs, lower extremity Edema Capillary refill: <2 Seconds Gastrointestinal: Soft and benign, W/out hepatosplenomegaly, No tenderness, No masses Musculoskeletal: No clubbing, Swelling Integumentary: No rashes, No breakdown Neurological: Normal speech, Normal strength at 5/5 x4 extr, Normal reflexes 2+, Normal affect Lymphatics: No axilla or inguinal lymphadenopathy Review of Systems per HPI Physical Examination - Vital Signs Temperature: 97.8 F Blood Pressure: 140/83 Pulse: 84 Respirations: 18 Pulse Ox (%): 94 - Studies Laboratory Data (last 24 hrs) 05/23/23 05/23/23 05/23/23 21:25 21:25 21:25 WBC 11.50 H Hgb 12.3 L Hct 38.8 L Plt Count 394 PT 18.3 H INR 1.69 Sodium 133 L Potassium 4.6 BUN 17 Creatinine 1.39 H Glucose 89 Magnesium 2.0 Total Bilirubin 1.4 H AST 112 H ALT 113 H Alkaline Phosphatase 62 Assessment And Plan - Plan Assessment and Plan NSTEMI (non-ST elevated myocardial infarction) Current Visit: Yes Status: Acute NSTEMI possibly type II Will trend cardiac enzymes Will monitor telemetry Started on aspirin and statin Patient denies any chest pain Will get an echocardiogram Cardiology consult Acute on chronic heart failure unknown baseline CHF exacerbation Current Visit: Yes Status: Acute Acute on chronic CHF possibly systolic/diastolic Monitor closely on telemetry Started on aggressive diuresis X-ray findings consistent with CHF Oxygen supplementation Will try to wean down oxygen requirement Continue home medications Titrate as needed Will obtain an echocardiogram Cardiology consult Acute hypoxic respiratory failure secondary to pneumonia Pneumonia Current Visit: Yes Status: Acute Leukocytosis Monitor CBC in a.m. Continue antibiotics, nebulized Monitor closely Will get a repeat x-ray in a.m. Tobacco use Educated on tobacco cessation Hyponatremia Monitor electrolytes and replace accordingly Acute on chronic kidney injury likely secondary to prerenal CHF Trend kidney function Avoid nephrotoxic medication Hypertension Current Visit: Yes Status: Chronic Plan: Continue home medications Morbid obesity BMI 47 Current Visit: No Status: Chronic Plan: Advised Life style modifications Full code DVT Lovenox Diet cardiac Disposition Home independently prior to admission Discharge Plan: Home - Code Status/Comfort Care Code Status: Full Code Critical Care: No Time Spent Managing PTS Care (In Minutes): 35
--- NOTE | 2023-05-24 16:24 | P.CNS ---
Date of Consult: 05/24/23 Chief Complaint: CHF History of Present Illness: Patient with PMH of heart failure, brugada syndrome, presented with worsening SOB and lower extremity swelling for the last few days, he has been complaint with medications except lasix and he take it when he have it. Allergies No Known Allergies Allergy (Verified 05/24/23 01:18) Home Medications: Aspirin 81 mg PO DAILY 60 Days #60 tab.chew 01/25/23 carvediloL [Coreg*] 12.5 mg PO BID 6AM 6PM 30 Days #60 tab 01/25/23 Hydralazine HCl 100 mg PO Q8H 05/24/23 Isosorbide Mononitrate [Isosorbide Mononitrate ER] 30 mg PO DAILY 05/24/23 lisinopriL [Lisinopril] 5 mg PO DAILY 05/24/23 - Past Medical/Surgical History Diabetic: No -: [place] -: HTN -: HLD -: Obesity - Family History Mother Medical History: Heart disease - Social History Smoking Status: Current every day smoker Alcohol use: No CD- Drugs: No Caffeine use: No Place of Residence: Home Review of Systems 10-point ROS is otherwise unremarkable Physical Examination Temp Pulse Resp BP Pulse Ox 97.8 F 84 18 140/83 94 05/24/23 14:59 05/24/23 14:59 05/24/23 14:59 05/24/23 14:59 05/24/23 14:59 General: Alert, Oriented x3 HEENT: Atraumatic Neck: Supple Respiratory: Crackles/rales Cardiovascular: Normal S1 S2, Edema Gastrointestinal: Normal bowel sounds Laboratory Data (last 24 hrs) 05/23/23 05/23/23 05/23/23 21:25 21:25 21:25 WBC 11.50 H Hgb 12.3 L Hct 38.8 L Plt Count 394 PT 18.3 H INR 1.69 Sodium 133 L Potassium 4.6 BUN 17 Creatinine 1.39 H Glucose 89 Magnesium 2.0 Total Bilirubin 1.4 H AST 112 H ALT 113 H Alkaline Phosphatase 62 - Problems (1) CHF exacerbation Current Visit: Yes Status: Acute Plan: get echo agree with IV lasix 40 mg TID, switch to lasix 40 mg po BID on discharge. continue Lisinopril 10 mg daily Continue Coreg 12.5 mg po BID. (2) NSTEMI (non-ST elevated myocardial infarction) Current Visit: Yes Status: Acute Plan: Type 2 [place] secondary to CHF exacerbation, no need for further cardiac work up. Continue ASA 81 mg daily (3) Hypertension Current Visit: Yes Status: Chronic Plan: medications as above, patient BP is well controlled.
[2023-05-24 17:00] VITALS: O2SAT 95
[2023-05-24] MEDS: carvediloL 12.5 MG TAB PO SCH (17:12)
[2023-05-25] MEDS ORDERED: KETOROLAC 30 MG/ML INJ IV PRN (01:15)
[2023-05-25 05:27] VITALS: BMI 47.1
[2023-05-25 05:46] LABS: Anion Gap 6.6 mEq/L (5.0-15.0); Potassium 3.6 mEq/L (3.5-5.1)
[2023-05-25] MEDS: HYDROCODONE/APAP 5/325 MG TAB PO PRN (05:55)
--- NOTE | 2023-05-25 07:05 | ECHO ---
HEIGHT: 6 ft 2 in WEIGHT: 367 lb 1.6 oz DATE OF STUDY: 05/24/[address]: Khoi Gutierrez DO 2-DIMENSIONAL: YES M.MODE: YES DOPPLER: YES COLOR FLOW: YES TDS: YES PORTABLE: YES DEFINITY: BUBBLE STUDY: DIAGNOSIS: CONGESTIVE HEART FAILURE CARDIAC HISTORY: CATHERIZATION: YES SURGERY: NO PROSTHETIC VALVE: NO PACEMAKER: NO MEASUREMENTS (cm) DIASTOLIC (NORMALS) SYSTOLIC (NORMALS) IVSd 1.8 (0.6-1.2) LA Diam 3.8 (1.9-4.0) LVEF 37% LVIDd 7.3 (3.5-5.7) LVIDs 6.0 (2.0-3.5) %FS 18% LVPWd 1.7 (0.6-1.2) Ao Diam 3.0 (2.0-3.7) 2 DIMENSIONAL ASSESSMENT: RIGHT ATRIUM: NOT SEEN LEFT ATRIUM: NOT WELL VISUALIZED RIGHT VENTRICLE: NOT SEEN LEFT VENTRICLE: DILATED TRICUSPID VALVE: NOT SEEN MITRAL VALVE: NOT WELL VISUALIZED PULMONIC VALVE: NOT SEEN AORTIC VALVE: NOT WELL VISUALIZED PERICARDIAL EFFUSION: NONE AORTIC ROOT: NOT SEEN LEFT VENTRICULAR WALL MOTION: SEVERE GLOBAL HYPOKINESIS DOPPLER/COLOR FLOW: DIASTOLIC DYSFUNCTION COMMENTS: 1. TECHNICALLY DIFFICULT STUDY 2. SEVERE REDUCED LEFT VENTRICULAR FUNCTION, EJECTION FRACTION 15-20%, SEVRE GLOBAL HYPOKINESIS (UNABLE TO ACCESS WALL MOTION ACCURATELY DUE TO POOR IMAGES). 3. DIASTOLIC DYSFUNCTION TECHNOLOGIST: RODNEY CHUNG
--- NOTE | 2023-05-25 07:13 | P.DS ---
Admission Date: 05/23/23 Discharge Date: 05/25/23 Disposition: ROUTINE DISCHARGE Discharge Condition: FAIR Reason for Admission: CHF Brief History of Present Illness: 27 yrs old Male with past medical history of Brugada syndrome, congestive heart failure, CAD, history of substance abuse, who was brought to ER with shortness of breath and swelling of bilateral lower extremity which has been slightly worsening over the last 2 weeks. Patient denies any chest pain. Patient has not followed by any plumber helper as outpatient in the recent few months. Associated with cough. With some bloody mucus. No fever or chills. No nausea vomiting or diarrhea. Patient having worsening of symptoms in the last 2 weeks and has been progressively worsening even with minimal exertion he used to get short of breath. Patient was assessed in the ER and was admitted for further management of CHF exacerbation and NSTEMI and right upper lobe pneumonia Physical Exam General: Alert, In no apparent distress, Oriented x3, Obese HEENT: Atraumatic, Normocephalic Neck: Supple, No Thyromegaly, No LAD Respiratory: Diminished, Crackles/rales Cardiovascular: Regular rate/rhythm, Normal S1 S2, No murmurs, Edema Capillary refill: <2 Seconds Gastrointestinal: Soft and benign, W/out hepatosplenomegaly, No tenderness, No masses Musculoskeletal: No clubbing, Swelling Integumentary: No rashes, No breakdown Neurological: Normal speech, Normal strength at 5/5 x4 extr, Normal reflexes 2+, Normal affect Lymphatics: No axilla or inguinal lymphadenopathy Hospital Course: 27-year-old male with a history of Brugada syndrome presented with CHF, elevated troponins, was evaluated by cardiology, was noted to have CHF exacerbation, elevated troponin noted as a type II TN secondary to CHF no further cardiac workup recommended. Patient is alert and oriented, tolerating diet, educated on cardiac diet after discharge. Follow-up with primary care after discharge for medication refills, follow-up with cardiology after discharge. Assessment Congestive heart failure exacerbation improved with diuretics Elevated troponin secondary to CHF improved Acute kidney injury secondary to prerenal congestive heart failure improved with medication adjust Follow-up with cardiology after discharge Discharged on Lasix 40 twice daily Lisinopril 10 mg daily Coreg 12.5 twice daily Aspirin 81 mg daily Continue home medicines as previously prescribed GOAL: Clear understanding of disease process INSTRUCTIONS: Physician Discharge Instructions: -DC IV and DC home -Follow-up with PCP in 1 to 2 weeks -Please call Dr. Richardson at [phone] if any questions regarding hospital stay -Please call nursing station at [phone] if any nursing or medication questions -Return to the emergency room if symptoms worsen Diet: ADA, low sodium Activity: Fall precautions Vital Signs/Physical Exam: Temp Pulse Resp BP Pulse Ox 97.4 F 77 18 129/85 96 05/25/23 04:00 05/25/23 05:53 05/25/23 05:55 05/25/23 05:53 05/25/23 05:55 Laboratory Data at Discharge: WBC 13.20 thou/uL (4.3-10.9) H 05/24/23 05:07 Hgb 12.7 g/dL (13.6-17.9) L 05/24/23 05:07 Hct 39.6 % (39.6-49.0) 05/24/23 05:07 Plt Count 362 thou/uL (152-406) 05/24/23 05:07 PT 18.3 SECONDS (9.5-12.5) H 05/23/23 21:25 INR 1.69 05/23/23 21:25 Sodium 135 mEq/L (136-145) L 05/25/23 05:05 Potassium 3.6 mEq/L (3.5-5.1) 05/25/23 05:05 BUN 18 mg/dL (7-18) 05/25/23 05:05 Creatinine 1.25 mg/dL (0.70-1.30) 05/25/23 05:05 Glucose 109 mg/dL (74-106) H 05/25/23 05:05 Magnesium 2.0 mg/dL (1.6-2.4) 05/23/23 21:25 Total Bilirubin 1.4 mg/dL (0.2-1.0) H 05/24/23 05:07 AST 177 U/L (15-37) H 05/24/23 05:07 ALT 150 U/L (16-61) H 05/24/23 05:07 Alkaline Phosphatase 58 U/L (45-117) 05/24/23 05:07 Home Medications: Aspirin 81 mg PO DAILY 60 Days #60 tab.chew 12/06/23 carvediloL [Coreg*] 12.5 mg PO BID 6AM 6PM 30 Days #60 tab 01/25/23 Hydralazine HCl 100 mg PO Q8H 05/24/23 Isosorbide Mononitrate [Isosorbide Mononitrate ER] 30 mg PO DAILY 05/24/23 lisinopriL [Lisinopril] 5 mg PO DAILY 05/24/23 Diet: AHA Activity: Fall precautions Followup: NONE,NONE [Primary Care Provider] - Time spent managing pt's care (in minutes): 55
[2023-05-25] MEDS: POTASSIUM CL SA 10 MEQ TAB PO ONE (08:22)
--- NOTE | 2023-05-25 10:59 | P.PN ---
Subjective Date of Service: 05/25/23 Chief Complaint: CHF Subjective: No new changes Review of Systems 10-point ROS is otherwise unremarkable Physical Examination - Vital Signs Temperature: 97.7 F Blood Pressure: 136/95 Pulse: 72 Respirations: 16 Pulse Ox (%): 96 - Physical Exam General: Alert, Oriented x3 Neck: Supple Respiratory: Clear to auscultation bilaterally Cardiovascular: Normal S1 S2, Edema Gastrointestinal: Normal bowel sounds Assessment And Plan - Current Problems (Diagnosis) (1) CHF exacerbation Current Visit: Yes Status: Acute Plan: Echo shows severe LV dilation and dysfunction (although poor images) agree with IV lasix 40 mg TID, switch to lasix 40 mg po BID on discharge. continue Lisinopril 10 mg daily Continue Coreg 12.5 mg po BID. follow up with cardiology as outpatient. (2) NSTEMI (non-ST elevated myocardial infarction) Current Visit: Yes Status: Acute Plan: Type 2 [place] secondary to CHF exacerbation, no need for further cardiac work up. Continue ASA 81 mg daily (3) Hypertension Current Visit: Yes Status: Chronic Plan: medications as above, patient BP is well controlled.
[2023-05-25 12:44] VITALS: TEMP 97
--- NOTE | 2023-05-25 15:43 | EKG ---
Test Date: 2023-05-23 Test Time: 21:08:03 Residential Appraiser: ROMULO MEASUREMENT RESULTS: Intervals: Rate: 91 MD: 196 QRSD: 162 QT: 428 QTc: 526 [place]: P: 40 MD: 196 QRS: 121 T: -13 INTERPRETIVE STATEMENTS: Normal sinus rhythm Possible Left atrial enlargement Right bundle branch block Inferior infarct, age undetermined Anterior infarct, age undetermined Abnormal ECG Compared to ECG 04/15/2023 18:30:48 First degree AV block no longer present Myocardial infarct finding still present Electronically Signed On 05-25-23 15:39:41 CDT by Adrián Davila
[2023-05-25 16:17] VITALS: BP 133/86
== END 2023-05-25 16:53 | disposition home or self-care (01) | DRG 280 ==
LOC: ER 19:37 → ERHOLD 22:51 → 4TH 05-24 00:46
PROVIDERS: ADMIT Family Medicine; ATTEND Hospitalist
DX: I11.0 Hypertensive heart disease with heart failure (principal); I50.33 Acute on chronic diastolic (congestive) heart failure; I21.A1 Myocardial infarction type 2; J18.9 Pneumonia, unspecified organism; J96.01 Acute respiratory failure with hypoxia; E87.1 Hypo-osmolality and hyponatremia; Z68.42 Body mass index [BMI] 45.0-49.9, adult; N17.9 Acute kidney failure, unspecified; E66.01 Morbid (severe) obesity due to excess calories; E78.5 Hyperlipidemia, unspecified; I25.10 Atherosclerotic heart disease of native coronary artery without angina pectoris; I25.2 Old myocardial infarction; F17.210 Nicotine dependence, cigarettes, uncomplicated; Z79.82 Long term (current) use of aspirin; Z79.02 Long term (current) use of antithrombotics/antiplatelets; Z79.899 Other long term (current) drug therapy; Z91.148 Patient's other noncompliance with medication regimen for other reason; Z91.199 Patient's noncompliance with other medical treatment and regimen due to unspecified reason
CPT/HCPCS: 36415; 71045; 71275; 80048; 80053; 80076; 80307; 81001; 83735; 83880; 84484; 85025; 85610; 93005; 93306; 94760; 96372; 96374; 99285; J0696; J1650; J1940; J7050; Q9967

== ENCOUNTER 2024-06-18 17:56 | Emergency (ER) | payer OTHER ==
--- NOTE | 2024-06-18 19:51 | RAD REPORT ---
EXAM: Chest Single View HISTORY: 29 years Male DYSPNEA COMPARISON: 05/23/2023 FINDINGS: LUNGS/PLEURA: Low lung volumes accentuates the pulmonary vasculature however there is likely pulmonar y edema.. Small effusions difficult to exclude. CARDIAC/MEDIASTINUM: Moderate cardiomegaly. UPPER ABDOMEN: No significant abnormality. BONES: No acute abnormality. LINES/TUBES/OTHER: N/A IMPRESSION: Findings concerning for congestive heart failure.
[2024-06-18 20:55] LABS: Absolute Basophils 0.1 K/uL (0-0.5); Absolute Neutrophil 6.3 K/uL (1.8-8.0); Basophils % 1.2 % (0-1.3); Eosinophils % 0.5 % (0-4.4); Hematocrit 41.9 % (39.6-49.0); Hemoglobin 13.6 g/dL (13.6-17.9); Lymphocytes % 21.2 % (15.3-44.8); MCH 26.1 pg (27.0-35.0); MCHC 32.4 g/dL (32.0-36.0); MCV 80.7 fL (80-100); Monocytes % 10.9 % (3.3-12.3); Neutrophils % 66.2 % (41.7-73.7); Nucleated Red Blood Cells % 0.1 % (0-0); Platelets 265 thou/uL (152-406); Red Cell Distribution Width 17.6 % (12.1-15.2)
[2024-06-18 21:05] LABS: Protime INR 1.33
[2024-06-18 21:14] LABS: Albumin 3.1 g/dL (3.4-5.0); Albumin/Globulin Ratio 0.9 (1.1-1.8); Anion Gap 9.2 mEq/L (5.0-15.0); Bilirubin Direct 0.4 mg/dL (0-0.2); Bilirubin Indirect, Calculated 0.8 mg/dL (0.2-0.8); Bilirubin Total 1.2 mg/dL (0.2-1.0); Globulin 3.4 g/dL (2.3-3.5); Magnesium 2.2 mg/dL (1.6-2.4); Potassium 4.2 mEq/L (3.5-5.1); Protein, Total 6.5 g/dL (6.4-8.2)
[2024-06-18] MEDS ORDERED: FUROSEMIDE 40 MG/4 ML VIAL ONE (22:59)
--- NOTE | 2024-06-19 00:11 | EDPHYS ---
Physician Documentation [facility] Name: Doug Bonilla Age: 29 yrs Sex: Male : 1995 Arrival Date: 06/18/2024 Time: 17:56 Bed [id number] Private MD: ED Physician Lul Cat HPI: 06/18 18:17 This 29 yrs old Male presents to ER via Ambulatory with complaints of Shortness Of sb4 Breath. 18:17 Patient reports shortness of breath for several months and chest pain with exertion. sb4 Has a history of congestive heart failure secondary to drug abuse. States he does not follow with a PCP or composition roll maker and cutter. States he has been out of his diuretics for at least a year now. Historical: - Allergies: 18:09 No Known Allergies; ld1 - PMHx: 18:09 Brugada syndrome; Congestive heart failure; Myocardial infarction; ld1 - Immunization history:: Adult Immunizations up to date. - Infectious Disease History:: Denies. - Social history:: Smoking status: Patient denies any tobacco usage or history of. ROS: 18:17 Constitutional: Negative for fever, chills, and weight loss, sb4 18:17 Cardiovascular: Positive for chest pain, 18:17 Respiratory: Positive for dyspnea on exertion, orthopnea, shortness of breath, 18:17 All other systems are negative, Exam: 18:17 Head/Face: Normocephalic, atraumatic. Eyes: Extra-ocular motions intact. Periorbital sb4 areas with no swelling, redness, or edema. ENT: Mucous membranes moist. Cardiovascular: Regular rate and rhythm with a normal S1 and S2. Respiratory: No increased work of breathing, no retractions or nasal flaring. Abdomen/GI: Soft, non-tender, no distension. Skin: Warm, dry with normal turgor. Normal color with no rashes, no lesions, and no evidence of cellulitis. 18:17 Constitutional: The patient appears in no acute distress, alert, awake, obese, 18:17 Respiratory: Breath sounds: are clear throughout, 21:44 ECG was reviewed by the Attending Physician. sb4 Vital Signs: 18:07 BP 163 / 96; Pulse 76; Resp 24; Temp 97.5(TE); Pulse Ox 98% on R/A; Weight 136.08 kg; ld1 Height 6 ft. 2 in. ; Pain 7/10; 23:39 BP 159 / 103; Pulse 75; Resp 18; Pulse Ox 98% ; cp4 06/19 00:53 BP 159 / 101; Pulse 72; Resp 18; Pulse Ox 98% ; cp4 06/18 18:07 Body Mass Index 38.52 (136.08 kg, 187.96 cm) ld1 06/18 18:07 Pain Scale: Adult ld1 MDM: 06/18 18:00 Medical Screening Exam initiated sb4 06/19 00:18 Data reviewed: vital signs, nurses notes, lab test result(s), EKG, radiologic studies, sb4 and as a result, I will discharge patient. Care significantly affected by the following chronic conditions: Congestive Heart Failure, Obesity. Counseling: I had a detailed discussion with the patient and/or guardian regarding the historical points, exam findings, and any diagnostic results supporting the discharge/admit diagnosis, the presence of at least one elevated blood pressure reading (>120/80) during this emergency department visit, lab results, radiology results, the need for outpatient follow up, for definitive care, a composition roll maker and cutter, to return to the emergency department if symptoms worsen or persist or if there are any questions or concerns that arise at home. 06/18 18:14 Order name: Basic Metabolic Panel; Complete Time: 21:19 sb4 06/18 18:14 Order name: CBC with Diff; Complete Time: 20:56 sb4 06/18 18:14 Order name: LFT's; Complete Time: 21:19 sb4 06/18 18:14 Order name: Magnesium; Complete Time: 21:19 sb4 06/18 18:14 Order name: NT PRO-BNP; Complete Time: 21:19 sb4 06/18 18:14 Order name: PT-INR; Complete Time: 21:05 sb4 06/18 18:14 Order name: Troponin HS; Complete Time: 21:19 sb4 06/18 22:22 Order name: Troponin High Sensitivity; Complete Time: 00:07 sb4 06/18 18:14 Order name: XRAY Chest (1 view); Complete Time: 19:51 sb4 06/18 18:14 Order name: Cardiac monitoring; Complete Time: 23:03 sb4 06/18 18:14 Order name: EKG - Nurse/Tech; Complete Time: 21:39 sb4 06/18 18:14 Order name: IV Saline Lock; Complete Time: 21:39 sb4 06/18 18:14 Order name: Labs collected and sent; Complete Time: 23:03 sb4 06/18 18:14 Order name: O2 Per Protocol; Complete Time: 23:03 sb4 06/18 18:14 Order name: O2 Sat Monitoring; Complete Time: 23:03 sb4 EC/29 21:44 Rate is 74 beats/min. Rhythm is regular, Sinus Rhythm with 1st degree heart block. sb4 Right axis deviation noted. IN interval is prolonged at 224 msec. QRS interval is normal at 138 msec. QT interval is prolonged at 438 msec. Interpreted by me. Reviewed by me. 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 Followup: sb4 - With: dArián Davila MD - When: 1 week - Reason: Recheck today's complaints, Re-evaluation by your physician Discharge Instructions: - Discharge Summary Sheet sb4 - Heart Failure, Diagnosis sb4 Forms: - Patient Portal Instructions sb4 - Leadership Thank You Letter sb4 - Work release form cp4 Prescriptions: - Lasix 40 mg Oral Tablet - take 1 tablet ORAL route once daily for 30 days; 30 tablet; Refills: 0, Product sb4 Selection Permitted Addendum: 06/20/2024 07:04 Co-signature as Attending Physician, Lul Cat MD I reviewed the patient's care r n provided by the Advanced Practice Provider and agree with the diagnosis and treatment plan. Signatures: Dispatcher [employer] Lul Tovar MD MD rn Sims, Lauren, RN RN ld1 Radha Saldivar PA-C PASailajaC sb4 Arline Mclain cp4 Corrections: (The following items were deleted from the chart) 06/18 18:14 18:14 BASIC METABOLIC PANEL+C.LAB.BRZ ordered. EDMS EDMS 18:14 18:14 CBC+H.LAB.BRZ ordered. EDMS EDMS 18:14 18:14 HEPATIC FUNCTION+C.LAB.BRZ ordered. EDMS EDMS 18:14 18:14 MAGNESIUM+C.LAB.BRZ ordered. EDMS EDMS 18:14 18:14 PROBNP+C.LAB.BRZ ordered. EDMS EDMS 18:14 18:14 PROTIME (+INR)+COAG.LAB.BRZ ordered. EDMS EDMS 18:14 18:14 Troponin High Sensitivity+C.LAB.BRZ ordered. EDMS EDMS 18:15 18:14 Chest Single View+RAD.RAD.BRZ ordered. EDMS EDMS
--- NOTE | 2024-06-19 00:11 | ER ---
Nurse's Notes [facility] Name: Doug Bonilla Age: 29 yrs Sex: Male : 1995 Arrival Date: 06/18/2024 Time: 17:56 Bed IW10 Private MD: Diagnosis: Acute on chronic combined systolic (congestive) and diastolic (congestive) heart failure Presentation: 06/18 18:07 Chief complaint: Patient states: SOB X 2 weeks, pt reports throbbing to left jaw. ld1 Coronavirus screen: At this time, the client does not indicate any symptoms associated with coronavirus-19. Ebola Screen: No symptoms or risks identified at this time. Initial Sepsis Screen: Does the patient meet any 2 criteria? No. Patient's initial sepsis screen is negative. Does the patient have a suspected source of infection? No. Patient's initial sepsis screen is negative. Risk Assessment: Do you want to hurt yourself or someone else? Patient reports no desire to harm self or others. Onset of symptoms was June 18, 2024. 18:07 Method Of Arrival: Ambulatory ld1 18:07 Acuity: UMBERTO 3 ld1 Triage Assessment: 18:09 General: Appears in no apparent distress. comfortable, Behavior is calm, cooperative, ld1 appropriate for age. Pain: Complains of pain in chest Pain does not radiate. Pain currently is 7 out of 10 on a pain scale. Quality of pain is described as throbbing, Pain began suddenly, Is continuous. EENT: No signs and/or symptoms were reported regarding the EENT system. Neuro: Level of Consciousness is awake, alert, obeys commands, Oriented to person, place, time, situation. Cardiovascular: Capillary refill < 3 seconds Patient's skin is warm and dry. Rhythm is sinus rhythm. Respiratory: Reports shortness of breath at rest on exertion Airway is patent Respiratory effort is even, unlabored, Onset: The symptoms/episode began/occurred suddenly, the patient has moderate shortness of breath. GI: Abdomen is round non-distended. : No signs and/or symptoms were reported regarding the genitourinary system. Derm: No signs and/or symptoms reported regarding the dermatologic system. Musculoskeletal: No signs and/or symptoms reported regarding the musculoskeletal system. Historical: - Allergies: 18:09 No Known Allergies; ld1 - PMHx: 18:09 Brugada syndrome; Congestive heart failure; Myocardial infarction; ld1 - Immunization history:: Adult Immunizations up to date. - Infectious Disease History:: Denies. - Social history:: Smoking status: Patient denies any tobacco usage or history of. Screenin:08 [facility] ED Fall Risk Assessment (Adult) History of falling in the last 3 months, cp4 including since admission No falls in past 3 months (0 pts) Confusion or Disorientation No (0 pts) Intoxicated or Sedated No (0 pts) Impaired Gait No (0 pts) Mobility Assist Device Used No (0 pt) Altered Elimination No (0 pt) Score/Fall Risk Level 0 - 2 = Low Risk Oriented to surroundings, Maintained a safe environment, Assessed \T\ reinforced patient's understanding of fall precautions, Hourly rounding (assess needs \T\ fall precautionary measures) done. Abuse screen: Denies threats or abuse. Denies injuries from another. Nutritional screening: No deficits noted. Tuberculosis screening: No symptoms or risk factors identified. Assessment: 23:04 General: Appears in no apparent distress. uncomfortable, Behavior is calm, cooperative, cp4 appropriate for age. Pain: Denies pain. Neuro: Level of Consciousness is awake, alert, obeys commands, Oriented to person, place, time, situation. Cardiovascular: Patient's skin is warm and dry. Rhythm is sinus rhythm. Respiratory: Airway is patent Respiratory effort is even, unlabored, Breath sounds are clear bilaterally. GI: No signs and/or symptoms were reported involving the gastrointestinal system. : No signs and/or symptoms were reported regarding the genitourinary system. EENT: No signs and/or symptoms were reported regarding the EENT system. Derm: No signs and/or symptoms reported regarding the dermatologic system. Musculoskeletal: No signs and/or symptoms reported regarding the musculoskeletal system. Vital Signs: 18:07 BP 163 / 96; Pulse 76; Resp 24; Temp 97.5(TE); Pulse Ox 98% on R/A; Weight 136.08 kg; ld1 Height 6 ft. 2 in. ; Pain 7/10; 23:39 BP 159 / 103; Pulse 75; Resp 18; Pulse Ox 98% ; cp4 06/19 00:53 BP 159 / 101; Pulse 72; Resp 18; Pulse Ox 98% ; cp4 06/18 18:07 Body Mass Index 38.52 (136.08 kg, 187.96 cm) ld1 04 18:07 Pain Scale: Adult ld1 ED Course: 06/18 17:59 Patient arrived in ED. im 17:59 Radha Saldivar PA-C is PHCP. sb4 17:59 Lul Cat MD is Attending Physician. sb4 18:09 Triage completed. ld1 18:09 Arm band placed on right wrist. ld1 19:19 XRAY Chest (1 view) In Process Unspecified. EDMS 23:08 Bed in low position. Call light in reach. Side rails up X 1. cp4 23:08 No provider procedures requiring assistance completed. Initial lab(s) drawn, by ED cp4 staff, sent to lab. Inserted saline lock: 20 gauge in right hand, using aseptic technique. Blood collected. Flushed with 10 mL NS. 23:34 Arline Mclain is Primary Nurse. cp4 06/19 00:11 Adrián Davila MD is Referral Physician. sb4 00:54 Provided Education on: CHF. cp4 00:54 intact, bleeding controlled, No redness/swelling at site. Pressure dressing applied. cp4 Administered Medications: 06/18 23:03 Drug: Furosemide IVP 40 mg IVP once; give over 2 minutes Route: IVP; Site: right hand; cp4 06/19 00:55 Follow up: Response: No adverse reaction cp4 Medication: 06/18 23:04 VIS not applicable for this client. cp4 Outcome: 06/19 00:11 Discharge ordered by . sb4 00:54 Discharged to home ambulatory, cp4 00:54 Condition: stable 00:54 Discharge instructions given to patient, Instructed on discharge instructions, follow up and referral plans. medication usage, Demonstrated understanding of instructions, follow-up care, medications, Prescriptions given X 1, 01:15 Patient left the ED. vc1 Signatures: Dispatcher [employer] EDID Pauly Avila RN RN ld1 Mariya Hills RN RN vc1 Radha Saldivar PA-C PA-C sb4 Patricia Thomas Arline Mclain cp4 Corrections: (The following items were deleted from the chart) 06/18 18:13 18:07 BP 163 / 96; Pulse 76bpm; Resp 18bpm; Pulse Ox 98% RA; Temp 97.5F Temporal; ld1 136.08 kg; Height 6 ft. 2 in.; BMI: 38.5; Pain 7/10, Adult; ld1
[2024-06-19 09:26] VITALS: TEMP 97.5; O2SAT 98
[2024-06-19 09:29] VITALS: BP 159/101
--- NOTE | 2024-06-20 11:57 | EKG ---
Test Date: 2024-06-18 Test Time: 20:25:40 [employer] Operator: BEVERLEY MEASUREMENT RESULTS: Intervals: Rate: 74 ME: 224 QRSD: 138 QT: 438 QTc: 486 [place]: P: 26 ME: 224 QRS: 122 T: 97 INTERPRETIVE STATEMENTS: Sinus rhythm with 1st degree AV block Right axis deviation Nonspecific intraventricular block Right ventricular hypertrophy Cannot rule out Septal infarct, age undetermined Abnormal ECG Electronically Signed On 06-20-24 11:55:28 CDT by Sam Heredia
== END 2024-06-19 01:15 | disposition home or self-care (01) ==
LOC: ER 17:56
DX: I50.43 Acute on chronic combined systolic (congestive) and diastolic (congestive) heart failure (principal); I25.2 Old myocardial infarction
CPT/HCPCS: 85025; 80048; 36415; 83735; 85610; 80076; 84484 ×2; 83880; 71045; J1938; 93005